=== PATIENT | male | born 1970 | race Caucasian/White ===

== ENCOUNTER 2020-02-03 13:27 | Outpatient (REF) | payer MEDICAID, SELFPAY | END 2020-02-03 13:28 | disposition home or self-care (01) | LOC: HO.LAB 13:27 | PROVIDERS: Visit Provider Internal Medicine | DX: Z20.828 Contact with and (suspected) exposure to other viral communicable diseases (principal) | CPT/HCPCS: C9803; U0003 ==

== ENCOUNTER 2020-06-08 10:00 | Outpatient (REF) | payer MEDICAID, SELFPAY | END 2020-06-08 10:01 | disposition home or self-care (01) | LOC: HO.LAB 10:00 | PROVIDERS: Visit Provider Internal Medicine | DX: Z20.822 Contact with and (suspected) exposure to COVID-19 (principal) | CPT/HCPCS: 36415; C9803; U0003; U0005 ==

== ENCOUNTER 2020-11-30 16:34 | Emergency (ER) | payer MEDICAID, SELFPAY ==
--- NOTE | ~2020-11-30 | CT_ITS ---
EXAMINATION: CT ANGIOGRAM OF THE CHEST WITH AND WITHOUT CONTRAST (CT PULMONARY ANGIOGRAM FOR PE) CT ABDOMEN AND PELVIS WITH CONTRAST CLINICAL INFORMATION: Left pleuritic chest pain. Rule out PE. Left upper quadrant abdominal pain. COMPARISON: Chest radiograph 12/15/2017 TECHNIQUE: Prior to contrast administration, noncontrast localization images were obtained. Subsequently, multidetector volumetric imaging was performed from the thoracic inlet to the pubic symphysis following the administration of 85 mL Omnipaque 350 intravenous contrast. This was followed by multidetector acquisition of the abdomen and pelvis. No contrast reaction reported Sagittal, coronal, and MIP oblique sagittal reformatted images were obtained on the CT workstation, uploaded to PACS, and reviewed. This CT examination was performed using dose optimization techniques as appropriate, variously including the following: *Automated exposure control *Adjustment of mA and/or kV according to patient size (this includes techniques or standardized protocols for targeted exams where dose is matched to indication/reason for exam; i.e. extremities or head) *Use of iterative reconstruction technique Total exam dose-length product 587 mGy-cm FINDINGS: QUALITY OF STUDY/CONTRAST BOLUS: Satisfactory. PULMONARY ARTERIES: No central or segmental pulmonary emboli. THORACIC AORTA: No aneurysm or dissection. LUNG: The central airways are patent. Mild paraseptal and centrilobular emphysema. Dependent atelectasis noted bilaterally. No dense consolidation. No pulmonary nodules. PLEURA: No pleural effusion or pneumothorax. MEDIASTINUM: Normal heart size. No pericardial effusion. No hilar or mediastinal lymphadenopathy. No evidence of septal bowing or right heart strain. CHEST WALL/AXILLA: No axillary or internal mammary lymphadenopathy. LIVER, GALLBLADDER, AND BILIARY TREE: The liver is normal in size, shape, and attenuation. No focal hepatic lesion or biliary ductal dilatation is present. The gallbladder is unremarkable with no evidence of radiopaque gallstones, gallbladder wall thickening, or obvious pericholecystic inflammatory changes. PANCREAS: Unremarkable. SPLEEN: Unremarkable. ADRENAL GLANDS: Unremarkable. KIDNEYS AND URETERS: The kidneys are normal in size, shape, and attenuation. No hydronephrosis, hydroureter, or calculi seen. No perinephric stranding. BLADDER: Unremarkable. GASTROINTESTINAL TRACT: The stomach is unremarkable. Normal caliber small bowel. There is no obstruction. Normal appendix. No colonic wall thickening or acute inflammatory change. No free air or free fluid. ABDOMINAL WALL: No significant hernia is appreciated. LYMPH NODES: Normal. VASCULAR: Unremarkable. PELVIC VISCERA: The prostate and seminal vesicles are unremarkable. OSSEOUS STRUCTURES: No acute or suspicious osseous abnormality. Mild degenerative changes of the spine. CT/CT angio chest PE protocol IMPRESSION: 1. No pulmonary embolism. 2. No acute abnormality in the chest, abdomen, or pelvis. 3. Mild emphysema. VTE: negative
[2020-11-30 17:05] VITALS: BP 104/67; PULSE 78; RESP 18; TEMP 36.8; O2SAT 98; BMI 22.3
[2020-11-30 18:26] VITALS: BP 112/67; PULSE 60; RESP 16; TEMP 36.6; O2SAT 97
[2020-11-30] MEDS: 0.9 % Sodium Chloride 1,000 ML 999 ML IV (18:34)
[2020-11-30 18:35] LABS: Basophils Percent Auto 0.4 % (0-2); Lymphocytes Percent Auto 25.7 % (20-40); MANUAL DIFF FLAG SCAN; Mean Corpuscular HGB Conc 35.4 g/dl (31.0-36.0); Mean Corpuscular Hemoglobin 31.1 pg (27.0-33.0); Monocytes Absolute Auto 0.8 X10*3/uL (0.1-1.2); PLT CLUMP 1; Red Cell Distribution Width 12.9 % (11.0-16.0); SCAN SMEAR FLAG 1
[2020-11-30] MEDS: ondansetron HCL 4 MG/2 ML VIAL IVPUSH (18:35)
[2020-11-30] MEDS: Ketorolac Tromethamine 15 MG/ML VIAL IVPUSH (18:35)
[2020-11-30 18:37] LABS: Eosinophils Absolute Auto 0.2 X10*3/uL (0.0-0.4); Hematocrit 43.5 % (42-52); Hemoglobin 15.4 g/dl (14.0-18.0); Imm Gran Abs Auto 0.02 X10*3/uL (0.00-0.03); Imm Gran Pct Auto 0.2 % (0.0-0.4); Lymphocytes Absolute Auto 2.1 X10*3/uL (1.2-4.9); Mean Corpuscular Volume 87.9 fL (80-98); Mean Platelet Volume 10.5 fL (9.4-12.4); Monocytes Percent Auto 9.4 % (2-11); Neutrophils Absolute Auto 5.1 X10*3/uL (2.0-8.3); Neutrophils Percent Auto 62.3 % (45-73); Platelet Count 141 X10*3/uL (160-400); Red Blood Count 4.95 X10*6/uL (4.60-5.80); White Blood Count 8.2 X10*3/uL (4.8-10.8)
[2020-11-30 18:58] LABS: SLIDE REVIEW VERIFIED
[2020-11-30 18:59] LABS: Alanine Aminotransferase 20 U/L (0-40); Albumin Level 3.9 g/dL (3.5-5.0); Alkaline Phosphatase 71 U/L (39-117); Aspartate Amino Transferase 28 U/L (5-37); Bilirubin Total 0.7 mg/dL (0.0-1.0); Blood Urea Nitrogen 9 mg/dL (9-16); Calcium 8.7 mg/dL (8.4-10.2); Creatinine Clr Calc Pharmacy 107.6; Estimated Glomerular Filt Rate > 60; Glucose Random 95 mg/dL (60-115); Lipase 43 U/L (8-78); Total Protein 6.4 g/dL (6.5-8.0)
[2020-11-30 19:08] LABS: Anion Gap 11 (12-20); Carbon Dioxide 25 mmol/L (22-29); Chloride 108 mmol/L (96-108); Potassium 3.5 mmol/L (3.3-5.1); Sodium 140 mmol/L (135-145)
[2020-11-30] MEDS: iohexoL 350 MG/ML 100 ML INFUS..BTL IV (20:39)
[2020-11-30 22:01] LABS: Glucose Urine UA NEG (NEG); Leukocyte Esterase Urine NEG (NEG); Nitrite Urine NEG (NEG); PH 6.5 (5.0-8.0); Specific Gravity - Urine <= 1.005 (1.005-1.025); Urine Blood NEG (NEG); Urine Ketones NEG (NEG); Urine Protein NEG (NEG-TRACE)
[2020-11-30 22:02] LABS: Appearance Urine CLEAR; Color Urine YELLOW
[2020-11-30] MEDS: predniSONE 20 MG TABLET 60 MG PO (23:31)
--- NOTE | 2020-12-01 02:00 | ED.ABDPAIN ---
HPI - Abdominal Pain General Chief Complaint: Abdominal Pain Stated Complaint: abd pain Time Seen by Provider: 11/30/20 17:42 Source: patient Mode of arrival: ambulatory Limitations: language barrier (Liberian speaking only, translator interpreter used) History of Present Illness HPI narrative: 50-year-old male who presents emergency department for evaluation of left-sided abdominal pain and left-sided chest pain. The patient states that the pain started while he was at work at around 3:00 p.m.. The pain came on suddenly. Describes the pain as sharp stabbing pain which is constant, worse with movement and worse with breathing. He felt short of breath and had dyspnea on exertion associated with the pain. He denied fever, chills, cough, nausea or vomiting. He states the pain is 9/10. This is 1st episode of this type of pain. Related Data Previous Rx's Medication Instructions Recorded prednisone 20 mg tablet 60 mg PO DAILY 5 Days #15 tab 11/30/20 Allergies Allergy/AdvReac Type Severity Reaction Status Date / Time No Known Allergies Allergy Verified 11/30/20 17:04 [No Known Allergies*] Review of Systems Review of Systems Yes all other systems are reviewed and are negative Physical Exam Vital Signs: Vital Signs: Last Vital Signs Temp 98 F 11/30/20 18:26 Pulse 60 11/30/20 18:26 Resp 16 11/30/20 18:26 BP 112/67 11/30/20 18:26 Pulse Ox 97 11/30/20 18:26 Body Mass Index 22.3 Const: General: cooperative and no acute distress Orientation/consciousness: oriented to person and oriented to place Limitations: no limitations HENMT: Head: Yes normal to inspection, Yes normocephalic and Yes atraumatic Ears: external ears normal General nose exam: Normal external nose present Face and sinus: Yes normal facial exam Mouth: Normal oral and palatal mucosa present Throat: Yes posterior oropharynx normal Eyes: General: appearance normal, both eyes and all related structures Pupils: Equal, round and reactive pupils present Neck: Neck: Yes normal visual inspection, Yes no lymphadenopathy, Yes trachea midline and Yes supple Chest: Chest palpation & inspection: normal inspection of the chest and tenderness (Moderate left lower chest wall tenderness) Resp: Effort & Inspection: normal respiratory effort and able to speak in complete sentences Auscultation: clear to auscultation bilaterally Cardio: Rate: regular rate Rhythm: regular rhythm Heart sounds: S1 normal heart sound present, S2 normal heart sound present and no murmurs GI: Inspection: Yes normal to inspection Palpation (GI): Soft to palpation, Tenderness to palpation present (GI) in the LUQ (Moderate) and no guarding Auscultation: normal bowel sounds : General: Yes no CVA tenderness Back/Spine/Pelvis: Back: no CVA tenderness Skin: General skin exam: no rashes or lesions noted Neuro: General: oriented to person and oriented to place Cranial nerves: Yes CN's II-XII intact bilaterally and Yes Equal, round and reactive pupils present Cognition (Neuro): normal cognition Motor exam (neuro): 5/5 motor strength present throughout Extrem: General: Yes normal to inspection Psych: Appearance: grossly normal Speech and movement: Normal speech and movement present Affect: normal affect Attitude: cooperative Thought process: Normal thought process present Thought content: Normal thought content present Course Course Course Narrative: 50-year-old male who presents emergency department for evaluation of left lower chest and left upper quadrant pain which began suddenly at 3:00 p.m., the pain is pleuritic and worse with movement, the pain was 9/10. Vital Signs were normal. The patient did have significant left lower chest wall and left upper quadrant abdominal tenderness. Laboratory evaluation was unremarkable. CT scan of the abdomen pelvis with IV contrast did not reveal any clear etiology for the pain. Patient's pain is most likely consistent with pleurisy versus musculoskeletal pain. The patient was treated with Toradol 30 mg IV, Zofran 4 mg IV and normal saline IV x1 L with resolution of his pain. The patient he was started on prednisone 60 mg once a day for 5 days . He was advised to take Tylenol for his pain as well. Patient was discharged home. The patient was given verbal and printed instructions prior to discharge. The patient was advised to follow-up with his PCP in 2 days and to return to the emergency department if his symptoms get worse or if he develops any new symptoms that are concerning to him. MDM - Abdominal Pain Lab Data Result diagrams: 11/30/20 18:23 11/30/20 18:23 Labs: Lab Results 11/30/20 11/30/20 11/30/20 Range/Units 18:23 18:23 21:52 WBC 8.2 (4.8-10.8) X10*3/uL RBC 4.95 (4.60-5.80) X10*6/uL Hgb 15.4 (14.0-18.0) g/dl Hct 43.5 (42-52) % MCV 87.9 (80-98) fL MCH 31.1 (27.0-33.0) pg MCHC 35.4 (31.0-36.0) g/dl RDW 12.9 (11.0-16.0) % Plt Count 141 L (160-400) X10*3/uL MPV 10.5 (9.4-12.4) fL Immature Gran % (Auto) 0.2 (0.0-0.4) % Neut % (Auto) 62.3 (45-73) % Lymph % (Auto) 25.7 (20-40) % [place] % (Auto) 9.4 (2-11) % Eos % (Auto) 2.0 (0-4) % Baso % (Auto) 0.4 (0-2) % Lymph # (Auto) 2.1 (1.2-4.9) X10*3/uL [place] # (Auto) 0.8 (0.1-1.2) X10*3/uL Eos # (Auto) 0.2 (0.0-0.4) X10*3/uL Baso # (Auto) 0.0 (0.0-0.2) X10*3/uL Abs Immat Gran (auto) 0.02 (0.00-0.03) X10*3/uL Absolute Neuts (auto) 5.1 (2.0-8.3) X10*3/uL Absolute Nucleated RBC 0.000 (0.0-0.012) X10*3/uL Nucleated RBC % (auto) 0.0 (0.0-0.2) /100WBC Smear Tech's Comments VERIFIED Sodium 140 (135-145) mmol/L Potassium 3.5 (3.3-5.1) mmol/L Chloride 108 (96-108) mmol/L Carbon Dioxide 25 (22-29) mmol/L Anion Gap 11 L (12-20) BUN 9 (9-16) mg/dL Creatinine 0.73 (0.5-1.4) mg/dL Estim Creat Clear Calc 107.6 Estimated GFR > 60 Random Glucose 95 (60-115) mg/dL Calcium 8.7 (8.4-10.2) mg/dL Total Bilirubin 0.7 (0.0-1.0) mg/dL AST 28 (5-37) U/L ALT 20 (0-40) U/L Alkaline Phosphatase 71 (39-117) U/L Total Protein 6.4 L (6.5-8.0) g/dL Albumin 3.9 (3.5-5.0) g/dL Lipase 43 (8-78) U/L Urine Color YELLOW Urine Appearance CLEAR Urine pH 6.5 (5.0-8.0) Ur Specific [place] <= 1.005 (1.005-1.025) Urine Protein NEG (NEG-TRACE) MG/DL Urine Glucose (UA) NEG (NEG) MG/DL Urine Ketones NEG (NEG) MG/DL Urine Blood NEG (NEG) Urine Nitrite NEG (NEG) Ur Leukocyte Esterase NEG (NEG) Discharge Plan Discharge Clinical Impression: Pleurisy Patient Disposition: Home, Self-Care Instructions: Pleurisy (ED) Additional Instructions: Your laboratory evaluation was normal. The CT scan of your chest abdomen and pelvis did not reveal any abnormalities which is reassuring. Your symptoms are consistent with pleurisy which is inflammation of the lining of your lungs. I am starting you on a strong anti-inflammatory steroid call prednisone. Take prednisone 20 mg pills, 3 pills once a day for 5 days. Stop taking Advil (ibuprofen) while you are taking prednisone. Take Tylenol (acetaminophen) 500 mg pills, 2 pills every 4 to 6 hours as needed for pain. Follow-up with your doctor in 2 days. Please return to the emergency department if your symptoms get worse or if you develop any symptoms that are concerning to you. Prescriptions: New prednisone 20 mg tablet 60 mg PO DAILY 5 Days Qty: 15 RF: 0 Stand Alone Forms: Work/School Release Interventions: ED Discharge Assessment Last Done: 11/30/20 23:41 Discharge Date/Time: 11/30/20 23:42 Print Language: Liberian [facility] Past Medical History [facility] Narrative: Past medical history: Arthritis of the hands. Past surgical history: None. Social history: He smokes 1/2 pack of cigarettes per day times 36 years. Denies alcohol use. He smokes marijuana daily. Medical History (Updated 12/01/20 @ 00:01 by Radha Ruano) No pertinent past medical history Social History Social History Advance Directives: No Advance Directives Information Provided: No
== END 2020-11-30 23:42 | disposition home or self-care (01) ==
PROVIDERS: Emergency Provider Emergency Medicine Emergency Medical Services
DX: R09.1 Pleurisy (principal); R10.9 Unspecified abdominal pain; Z79.899 Other long term (current) drug therapy
CPT/HCPCS: 36415; 71275; 74177; 80053; 81003; 83690; 85025; 96361; 96374; 96375; 99283; 99284; J1885; J2405; Q9967

== ENCOUNTER 2021-04-18 14:25 | Outpatient (REF) | payer MEDICAID, SELFPAY ==
[2021-04-18 14:56] LABS: COVID-19 Test Negative (Negative); IDNOW Serial# 16C4AD1C
== END 2021-04-18 14:26 | disposition home or self-care (01) ==
LOC: HO.LAB 14:25
PROVIDERS: Visit Provider Internal Medicine
DX: Z20.822 Contact with and (suspected) exposure to COVID-19 (principal)
CPT/HCPCS: 87635; C9803

== ENCOUNTER 2021-05-01 09:22 | Emergency (ER) | payer MEDICAID, SELFPAY ==
[2021-05-01 10:15] VITALS: BP 109/76; PULSE 70; RESP 18; TEMP 36.7; O2SAT 99; BMI 23.6
--- NOTE | 2021-05-01 11:06 | ED_ITS ---
HPI - General Adult General Chief complaint: General Medical Stated complaint: BODY ACHES Time Seen by Provider: 05/01/21 11:06 Source: patient Mode of arrival: ambulatory Limitations: no limitations History of Present Illness MD complaint: joint pain, heartburn Onset (ago): year(s) (3) Location: abdomen, left, right and upper extremity Radiation: non-radiation Severity: mild Quality: aching and other (burning) Pain Consistency: intermittent Relieving factors: eating and movement Exacerbating factors: none Associated symptoms: denies other symptoms Treatments prior to arrival: NSAID (takes advil daily) Related Data Previous Rx's Medication Instructions Recorded prednisone 20 mg tablet 60 mg PO DAILY 5 Days #15 tab 11/30/20 diclofenac sodium 1 % topical gel 2 g TOPICAL QID #100 g 05/01/21 (Voltaren Arthritis Pain) famotidine 20 mg tablet (Pepcid) 20 mg PO DAILY PRN #30 tab 05/01/21 gabapentin 100 mg capsule 100 mg PO BID 10 Days #20 cap 05/01/21 Allergies Allergy/AdvReac Type Severity Reaction Status Date / Time No Known Allergies Allergy Verified 05/01/21 10:15 [No Known Allergies*] Review of Systems Verdana 4l Review of Systems: Verdana 4d Verdana 4d Constitutional : No Fever, No Chills ENT/Mouth : No Ear Pain, No Hoarseness, No sore throat Eyes: No Eye Pain, No Swelling, No Redness, No Foreign Body Cardiovascular : No Chest Pain, No SOB Respiratory : No Cough, No Dyspnea GastrointestinalGastrointestinal : pos Nausea, No Vomiting, No Diarrhea, No abdominal Pain Genitourinary : No Dysuria, No Hematuria, pos heart burn Musculoskeletal : positive joint pain, No Myalgias, pos Joint Swelling Skin : No Skin lacerations, No rash Neuro : No Weakness, No Numbness, No Loss of Consciousness, No Dizziness, No Headache Psych : No Anxiety/Panic, No Depression Heme/Lymph: no easy bruising, no Lymphadenopathy Endocrine : No Polyuria, No Polydipsia All other systems reviewed and are negative [facility] Past Medical History Medical History Arthritis Depression No pertinent past medical history Social History Social History (Updated 05/01/21 @ 11:58 by Linda [place], DO) Patient Tobacco Use Status: Tobacco use Unknown Advance Directives: No Advance Directives Information Provided: No Physical Exam Verdana 4l Vital Signs: Verdana 4d Verdana 4d Vital Signs: Verdana 4d Verdana 4Bd Last Vital Signs Verdana 4d Packing Machine Can Feeder New 4d Packing Machine Can Feeder New 4d Temp 98.1 F 05/01/21 10:15 Packing Machine Can Feeder New 4d Pulse 70 05/01/21 10:15 Packing Machine Can Feeder New 4d Resp 18 05/01/21 10:15 BP 109/76 05/01/21 10:15 Pulse Ox 99 05/01/21 10:15 BMI result Body Mass Index 23.6 Appearance: Alert. Oriented X3. No acute distress. intermittently agitated Eyes: Pupils equal, round and reactive to light. ENT: Pharynx normal. Neck: Normal inspection. Neck supple. CVS: Normal heart rate and rhythm. Pulses normal. Respiratory: No respiratory distress. Breath sounds normal. Abdomen: Soft and non-tender. Skin: Skin warm and dry. Normal skin color. Normal skin turgor. Extremities: No lower extremity edema. states hands are swollen - no swelling or redness noted Neuro: Oriented X 3. No motor deficit. No sensory deficit. Course Course Course Narrative: patient feels much better Medical Decision Making MDM Narrative Medical decision making narrative: 50 yo male here in ED for 3 years of joint pain and acid reflux but has appointment with his doctor tomorrow he is very agitated and here for a pill - he refuses a COVID swab. He then states he wants to leave. With chip frier I was able to calm him down - I did discuss stopping advil and starting him on diclofenac gel, gabapentin and pepcid until his appointment tomorrow he agrees - his joints appear normal he has no other red flags he does not want workup in ED since he is seeing his doctor in the morning Discharge Plan Discharge Clinical Impression: Arthralgia Qualifiers: Joint pain location: unspecified Qualified Code(s): M25.50 - Pain in unspecified joint GERD (gastroesophageal reflux disease) Qualifiers: Esophagitis presence: without esophagitis Qualified Code(s): K21.9 - Gastro- esophageal reflux disease without esophagitis Patient Disposition: Home, Self-Care Instructions: Indigestion (ED), Arthralgia (ED) Additional Instructions: return to ED for any worsening symptoms or concerns no advil Prescriptions: New famotidine [Pepcid] 20 mg tablet 20 mg PO DAILY PRN (Reason: abdominal discomfort) Qty: 30 0RF diclofenac sodium [Voltaren Arthritis Pain] 1 % gel 2 g topical QID Qty: 100 0RF Rx Instructions: apply to single elbow, wrist or hand; for hand includes palm/fingers/back of hand gabapentin 100 mg capsule 100 mg PO BID 10 Days Qty: 20 0RF No Action prednisone 20 mg tablet 60 mg PO DAILY 5 Days Qty: 15 0RF Stand Alone Forms: Work/School Release Discharge Date/Time: 05/01/21 13:18 Print Language: Bahamian
== END 2021-05-01 13:18 | disposition home or self-care (01) ==
PROVIDERS: Emergency Provider Emergency Medicine
DX: M25.50 Pain in unspecified joint (principal); K21.9 Gastro-esophageal reflux disease without esophagitis
CPT/HCPCS: 99281; 99283

== ENCOUNTER 2022-03-19 15:41 | Emergency (ER) | payer MEDICAID, SELFPAY ==
--- NOTE | 2022-03-19 16:02 | ED.GENADULT ---
HPI - General Adult General Chief complaint: General Medical Stated complaint: bodyaches,headaches, abd pain, vomitting dizzy Source: patient Mode of arrival: ambulatory Limitations: no limitations Related Data Previous Rx's Medication Instructions Recorded prednisone 20 mg tablet 60 mg PO DAILY 5 days #15 tabs 11/30/20 diclofenac sodium 1 % topical gel 2 g topical QID #100 grams 05/01/21 (Voltaren Arthritis Pain) famotidine 20 mg tablet (Pepcid) 20 mg PO DAILY PRN abdominal 05/01/21 discomfort #30 tabs gabapentin 100 mg capsule 100 mg PO BID 10 days #20 caps 05/01/21 Allergies Allergy/AdvReac Type Severity Reaction Status Date / Time No Known Allergies Allergy Verified 05/01/21 10:15 [No Known Allergies*] [facility] Past Medical History Attestation statement: The following information was validated with the patient. Source: old records reviewed Medical History Arthritis Depression No pertinent past medical history Social History Social History Patient Tobacco Use Status: Tobacco use Unknown Advance Directives: No Advance Directives Information Provided: No Physical Exam ED Vital Signs: Vital Signs - 24 hr 03/19/22 16:11 Temperature 97.6 F Pulse Rate 88 Respiratory Rate 18 Blood Pressure 118/84 Pulse Oximetry 98 Oxygen Delivery Method Room Air BMI result Body Mass Index 22.3 Course Course Course Narrative: RME: Patient is a 51-year-old male who presents to emergency department with complaints of abdominal pain, headache, nausea, vomiting, dizziness, whole body arthritis x 1 year. 4 days ago he awoke with tactile fever, and diffuse body burning which is new for him. Denies any known sick contacts. Has not been vaccinated for COVID-19 or influenza. Denies chest pain, shortness of breath, presyncope or syncope, neck pain, neck stiffness. Plan: Labs, COVID-19/influenza testing. Medical Decision Making Lab Data [facility] Lab Attestation statement: I reviewed the patient's lab results. Result Diagrams: 03/19/22 16:36 03/19/22 16:36 Labs: Lab Results 03/19/22 03/19/22 03/19/22 Range/Units 16:36 16:36 16:37 WBC 4.5 L (4.8-10.8) X10*3/uL RBC 5.64 (4.60-5.80) X10*6/uL Hgb 17.0 (14.0-18.0) g/dl Hct 49.5 (42.0-52.0) % MCV 87.8 (80.0-98.0) fL MCH 30.1 (27.0-33.0) pg MCHC 34.3 (31.0-36.0) g/dl RDW 12.7 (11.0-16.0) % Plt Count 122 L (160-400) X10*3/uL MPV 9.9 (9.4-12.4) fL Immature Gran % (Auto) 0.2 (0.0-0.4) % Neut % (Auto) 48.6 (45-73) % Lymph % (Auto) 34.4 (20-40) % [place] % (Auto) 16.0 H (2-11) % Eos % (Auto) 0.4 (0-4) % Baso % (Auto) 0.4 (0-2) % Lymph # (Auto) 1.5 (1.2-4.9) X10*3/uL [place] # (Auto) 0.7 (0.1-1.2) X10*3/uL Eos # (Auto) 0.0 (0.0-0.4) X10*3/uL Baso # (Auto) 0.0 (0.0-0.2) X10*3/uL Abs Immat Gran (auto) 0.01 (0.00-0.03) X10*3/uL Absolute Neuts (auto) 2.2 (2.0-8.3) x10*3/uL Absolute Nucleated RBC 0.000 (0.0-0.012) X10*3/uL Nucleated RBC % (auto) 0.0 (0.0-0.2) /100WBC Sodium 138 (135-145) mmol/L Potassium 3.7 (3.3-5.1) mmol/L Chloride 104 (96-108) mmol/L Carbon Dioxide 26 (22-29) mmol/L Anion Gap 12 (12-20) BUN 10 (9-16) mg/dL Creatinine 0.76 (0.5-1.4) mg/dL Estim Creat Clear Calc 98.0 Estimated GFR > 60 Random Glucose 91 (60-115) mg/dL Calcium 8.7 (8.4-10.2) mg/dL Magnesium 1.8 (1.6-2.6) mg/dL Total Bilirubin 0.5 (0.0-1.0) mg/dL AST 23 (5-37) U/L ALT 24 (0-40) U/L Alkaline Phosphatase 87 (39-117) U/L Troponin I High Sens < 3.5 (<3.5-35.0) ng/L Total Protein 7.2 (6.5-8.0) g/dL Albumin 4.2 (3.5-5.0) g/dL Lipase 25 (8-78) U/L COVID-19 ([facility]) (Negative) COVID-19 Clin Com Influenza Type A ([facility]ILE) (Negative) Influenza Type B (EMILE) (Negative) Influenza A & B Note 03/19/22 03/19/22 Range/Units 16:43 16:44 WBC (4.8-10.8) X10*3/uL RBC (4.60-5.80) X10*6/uL Hgb (14.0-18.0) g/dl Hct (42.0-52.0) % MCV (80.0-98.0) fL MCH (27.0-33.0) pg MCHC (31.0-36.0) g/dl RDW (11.0-16.0) % Plt Count (160-400) X10*3/uL MPV (9.4-12.4) fL Immature Gran % (Auto) (0.0-0.4) % Neut % (Auto) (45-73) % Lymph % (Auto) (20-40) % [place] % (Auto) (2-11) % Eos % (Auto) (0-4) % Baso % (Auto) (0-2) % Lymph # (Auto) (1.2-4.9) X10*3/uL [place] # (Auto) (0.1-1.2) X10*3/uL Eos # (Auto) (0.0-0.4) X10*3/uL Baso # (Auto) (0.0-0.2) X10*3/uL Abs Immat Gran (auto) (0.00-0.03) X10*3/uL Absolute Neuts (auto) (2.0-8.3) x10*3/uL Absolute Nucleated RBC (0.0-0.012) X10*3/uL Nucleated RBC % (auto) (0.0-0.2) /100WBC Sodium (135-145) mmol/L Potassium (3.3-5.1) mmol/L Chloride (96-108) mmol/L Carbon Dioxide (22-29) mmol/L Anion Gap (12-20) BUN (9-16) mg/dL Creatinine (0.5-1.4) mg/dL Estim Creat Clear Calc Estimated GFR Random Glucose (60-115) mg/dL Calcium (8.4-10.2) mg/dL Magnesium (1.6-2.6) mg/dL Total Bilirubin (0.0-1.0) mg/dL AST (5-37) U/L ALT (0-40) U/L Alkaline Phosphatase (39-117) U/L Troponin I High Sens (<3.5-35.0) ng/L Total Protein (6.5-8.0) g/dL Albumin (3.5-5.0) g/dL Lipase (8-78) U/L COVID-19 ([facility]ANSEL) Positive A (Negative) COVID-19 Clin Com See Note Influenza Type A (EMILE) Negative (Negative) Influenza Type B ([facility]ILE) Negative (Negative) Influenza A & B Note See Note Discharge Plan Discharge Clinical Impression: COVID-19 Patient Disposition: Elopement Prescriptions: No Action prednisone 20 mg tablet 60 mg PO DAILY 5 Days Qty: 15 0RF famotidine [Pepcid] 20 mg tablet 20 mg PO DAILY PRN (Reason: abdominal discomfort) Qty: 30 0RF diclofenac sodium [Voltaren Arthritis Pain] 1 % gel 2 g topical QID Qty: 100 0RF Rx Instructions: apply to single elbow, wrist or hand; for hand includes palm/fingers/back of hand gabapentin 100 mg capsule 100 mg PO BID 10 Days Qty: 20 0RF
[2022-03-19 16:11] VITALS: BP 118/84; PULSE 88; RESP 18; TEMP 36.4; O2SAT 98; BMI 22.3
--- NOTE | 2022-03-19 16:17 | ECG_ITS ---
Test Reason : PAIN Blood Pressure : / mmHG Vent. Rate : 065 BPM Atrial Rate : 065 BPM P-R Int : 142 ms QRS Dur : 086 ms QT Int : 378 ms P-R-T Axes : 062 053 059 degrees QTc Int : 393 ms Normal sinus rhythm Possible Left atrial enlargement Borderline ECG When compared with ECG of 01-FEB-2019 20:38, No significant change was found Referred By: Lucy Kern Electronically Signed By:Kel Richards
[2022-03-19 16:50] LABS: MANUAL DIFF FLAG NO
[2022-03-19 16:59] LABS: Basophils Percent Auto 0.4 % (0-2); Eosinophils Percent Auto 0.4 % (0-4); Hematocrit 49.5 % (42.0-52.0); Imm Gran Abs Auto 0.01 X10*3/uL (0.00-0.03); Imm Gran Pct Auto 0.2 % (0.0-0.4); Lymphocytes Absolute Auto 1.5 X10*3/uL (1.2-4.9); Lymphocytes Percent Auto 34.4 % (20-40); Mean Corpuscular HGB Conc 34.3 g/dl (31.0-36.0); Mean Corpuscular Hemoglobin 30.1 pg (27.0-33.0); Mean Corpuscular Volume 87.8 fL (80.0-98.0); Mean Platelet Volume 9.9 fL (9.4-12.4); Monocytes Absolute Auto 0.7 X10*3/uL (0.1-1.2); Neutrophils Absolute Auto 2.2 x10*3/uL (2.0-8.3); Neutrophils Percent Auto 48.6 % (45-73); Platelet Count 122 X10*3/uL (160-400); Red Blood Count 5.64 X10*6/uL (4.60-5.80); Red Cell Distribution Width 12.7 % (11.0-16.0); White Blood Count 4.5 X10*3/uL (4.8-10.8)
[2022-03-19 17:01] LABS: COVID-19 Test Positive (Negative); IDNOW Serial# 16C4AD1C
[2022-03-19 17:10] LABS: IDNOW Serial# BCCEAD1C; Influenza A Negative (Negative); Influenza B2 Negative (Negative)
[2022-03-19 17:13] LABS: Alanine Aminotransferase 24 U/L (0-40); Albumin Level 4.2 g/dL (3.5-5.0); Alkaline Phosphatase 87 U/L (39-117); Anion Gap 12 (12-20); Aspartate Amino Transferase 23 U/L (5-37); Bilirubin Total 0.5 mg/dL (0.0-1.0); Blood Urea Nitrogen 10 mg/dL (9-16); Calcium 8.7 mg/dL (8.4-10.2); Carbon Dioxide 26 mmol/L (22-29); Chloride 104 mmol/L (96-108); Estimated Glomerular Filt Rate > 60; Glucose Random 91 mg/dL (60-115); Lipase 25 U/L (8-78); Magnesium 1.8 mg/dL (1.6-2.6); Potassium 3.7 mmol/L (3.3-5.1); Sodium 138 mmol/L (135-145); Total Protein 7.2 g/dL (6.5-8.0)
[2022-03-19 17:29] LABS: Troponin-I High Sensitivity < 3.5 ng/L (<3.5-35.0)
--- NOTE | 2022-03-19 19:35 | PC.NURSE ---
Patient called in to speak with provider and he has left the ED.
== END 2022-03-19 20:10 | disposition left against medical advice (07) ==
PROVIDERS: Nurse Practitioner Family; Emergency Provider Emergency Medicine
DX: U07.1 COVID-19 (principal); R51.9 Headache, unspecified
CPT/HCPCS: 36415; 80053; 83690; 83735; 84484; 85025; 87502; 87635; 93005; 99283

== ENCOUNTER 2025-02-15 10:12 | Outpatient (REF) | payer MEDICAID, SELFPAY ==
[2025-02-15 11:27] LABS: MANUAL DIFF FLAG NO
[2025-02-15 12:02] LABS: Hemoglobin 16.9 g/dl (14.0-18.0); Imm Gran Abs Auto 0.02 X10*3/uL (0.00-0.03); Imm Gran Pct Auto 0.4 % (0.0-0.4); NRBC Abs Auto 0.000 X10*3/uL (0.0-0.012); NRBC Pct Auto 0.0 /100WBC (0.0-0.2); PLT CLUMP 1; SCAN SMEAR FLAG 1
[2025-02-15 12:04] LABS: Hematocrit 48.7 % (42.0-52.0); Lymphocytes Absolute Auto 1.3 X10*3/uL (1.2-4.9); Mean Corpuscular HGB Conc 34.7 g/dl (31.0-36.0); Mean Corpuscular Hemoglobin 30.5 pg (27.0-33.0); Mean Corpuscular Volume 87.7 fL (80.0-98.0); Red Blood Count 5.55 X10*6/uL (4.60-5.80)
[2025-02-15 12:27] LABS: Alanine Aminotransferase 26 U/L (0-40); Albumin Level 4.2 g/dL (3.5-5.0); Alkaline Phosphatase 87 U/L (39-117); Anion Gap 11 (12-20); Aspartate Amino Transferase 34 U/L (5-37); Blood Urea Nitrogen 16 mg/dL (9-16); Calcium 8.6 mg/dL (8.4-10.2); Carbon Dioxide 21 mmol/L (22-29); Chloride 109 mmol/L (96-108); Cholesterol 115 mg/dL (<200); Estimated Glomerular Filt Rate > 60; HDL Cholesterol 28 mg/dL (>40); Potassium 3.8 mmol/L (3.3-5.1); Sodium 137 mmol/L (135-145); Total Protein 7.3 g/dL (6.5-8.0); Triglycerides 80 mg/dL (<150); Uric Acid 2.4 mg/dL (3.4-7.0)
[2025-02-15 12:30] LABS: HBS Num1 1.29 mIU/mL (0-7.99); HBc Num1 0.18 S/CO (0.00-0.79); HBsAGNum1 0.52 S/CO (0.00-0.99); HIV Num 1 0.06 S/CO (0.00-0.99); Hepatitis A Antibody IgM 0.22 Index (0-0.79); Hepatitis B Surface Antigen Negative (Negative); ~HepC Num1 0.17 S/CO (0.00-0.79); ~Hepatitis A Antibody IgM Nonreactive (Nonreactive); ~Hepatitis B Surface Antibody NONREACTIVE (Nonreactive); ~Hepatitis C Antibody Nonreactive (Nonreactive)
[2025-02-15 12:31] LABS: Platelet Count 119 X10*3/uL (160-400); White Blood Count 5.6 X10*3/uL (4.8-10.8)
[2025-02-15 13:54] LABS: Reflex LDLD? No
[2025-02-17 11:23] LABS: Anti Nuclear Antibody Screen NEGATIVE (NEGATIVE)
[2025-02-18 08:23] LABS: TS Negative Control Passed; TS Panel A 5; TS Panel B 1; TS Positive Control Passed; TSpotTB Borderline (Negative)
== END 2025-02-15 10:13 | disposition home or self-care (01) ==
LOC: HO.HHCL 10:12
PROVIDERS: PCP Internal Medicine; Visit Provider Internal Medicine
DX: Z01.84 Encounter for antibody response examination (principal); Z11.3 Encounter for screening for infections with a predominantly sexual mode of transmission; Z11.4 Encounter for screening for human immunodeficiency virus [HIV]; Z11.59 Encounter for screening for other viral diseases; Z11.1 Encounter for screening for respiratory tuberculosis; R03.0 Elevated blood-pressure reading, without diagnosis of hypertension; M25.50 Pain in unspecified joint
CPT/HCPCS: 36415; 80053; 80061; 84443; 84550; 85025; 85652; 86038; 86140; 86431; 86481; 86704; 86706; 86709; 86803; 87340; 87389

== ENCOUNTER 2025-02-17 08:46 | Emergency (ER) | payer MEDICAID, SELFPAY ==
--- OUTSIDE RECORDS SUMMARY | 2025-02-14 14:20 | XMS_ITS | Encounter Summary ---
Author Organization [employer] Address [address] [facility] [address] [address] [place] [address] Care Team Providers Care Senior Manufacturing Test Engineer Name Role Phone Mena Worthy ARCHANA Primary Care Provider [phone] Encounter Details Date Type Department Care Team (Late st Contact Info) Description 02/14/2025 2:20 PM EST Office Visit [facility] [address] [place] [address] Dulce Maria Arias MD [address] [place] [address] Arthralgia, unspecified joint (Primary Dx); Elevated blood pressure reading; Body aches Social History Tobacco Use Types Packs/Day Years Used Date Smoking Tobacco: Every Day Cigarettes Smokeless Tobacco: Never Tobacco Cessation:Ready to Q uit: Not Asked; Counseling Given: Not Answered Alcohol Use Standard Drinks/Week Comments Never 0 (1 standard drink = 0.6 oz pur e alcohol) Depression Answer Date Recorded Patient Health Questionnaire-9 Score 6 03/20/2022 Depression Answer Date Recorded Patient Health Questionnaire-2 Score 3 03/20/2022 Sex and Gender Information Value Date Recorded Sex Assigned at Male 01/28/2022 10:18 AM EDT Legal Sex Male 10:18 AM EDT Gender Identity Choose not to disclose 10:18 AM EDT Sexual Orientation Choose not to disclose 2021 10:18 AM EDT documented as of this encounter Last Filed Vital Signs Vital Sign Reading Time Taken Comments Blood Pressure 122/90 02/14/2025 2:22 PM EST Pulse 95 02/14/2025 2:22 PM EST Temperature 36.5 C (97.7 F) 02/14/2025 2:22 PM EST Respiratory Rate 16 02/14/2025 2:22 PM EST Oxygen Saturation 97% 02/14/2025 2:22 PM EST Inhaled Oxygen Concentration - - Weight 66.8 kg (147 lb 3.2 oz) 02/14/2025 2:22 P M EST Height 167.6 cm (5' 6 ) 02/14/2025 2:22 PM EST Body Mass Index 23.76 02/14/2025 2:22 PM EST documented in this encounter Progress Notes * Dulce Maria Arias MD - 02/14/2025 2:20 PM EST SUBJECTIVE: Seven Morrow is a 54 y.o. year old adult who presents for Walk In Center/body aches. Denies recent illness, injury, or hospitalization. Acute Concerns: Polyarticular Joint Pain and Swelling Co generalized body aches and arthralgias for many years, Reports pain as persistent and severe, with episodes of stiffness and difficulty moving. Pain is aggravated by activity and worsens at work. Uses topical creams for relief. No mention of prior joint trauma. Reports intermittent sensations of internal heat as if having a fever, followed by chills. These episodes are associated with joint pain and occur unpredictably. Headaches Describes sudden, stabbing headaches, sometimes accompanied by visual disturbances. Headaches occursporadically and are severe. Occasional vision problems, especially when straining to read or watchtelevision. Visual discomfort is associated with headaches. Hypertension History of high blood pressure, with episodes of feeling hot inside and headaches. Not taking BP meds. Hasn't seen PCP in 2+ y Substance Use Admits to occasional cigarette + THC smoking and Crack cocaine use in the past more than 10y ago. Denies current alcohol use. Social History Social History Narrative Not on file Problem List[1] Family History[2] Review of Systems Constitutional: Positive for fatigue. Negative for chills and fever. HENT: Negative for congestion, ear pain, nosebleeds, rhinorrhea, sinus pressure, sore throat and trouble swallowing. Eyes: Positive for visual disturbance. Negative for pain and discharge. Respiratory: Negative for cough, chest tightness and shortness of breath. Cardiovascular: Negative for chest pain, palpitations and leg swelling. Gastrointestinal: Negative for abdominal pain, blood in stool, constipation, diarrhea and nausea. Endocrine: Negative for polydipsia and polyuria. Genitourinary: Negative for dysuria, frequency, genital sores, pelvic pain and vaginal discharge. Musculoskeletal: Positive for arthralgias and myalgias. Negative for back pain and neck pain. Skin: Negative for rash. Allergic/Immunologic: Negative for environmental allergies. Neurological: Positive for headaches. Negative for dizziness, seizures, weakness and light-headedness. Hematological: Negative for adenopathy. Psychiatric/Behavioral: Negative for agitation, behavioral problems, self-injury and suicidal ideas. OBJECTIVE: Vitals: 02/14/25 1422 BP: (!) 122/90 Pulse: 95 Resp: 16 Temp: 97.7 ??F (36.5 ??C) SpO2: 97% Physical Exam HENT: Right Ear: Tympanic membrane and ear canal normal. Left Ear: Tympanic membrane and ear canal normal. Mouth/Throat: Mouth: Mucous membranes are moist. Pharynx: No oropharyngeal exudate or posterior oropharyngeal erythema. Eyes: Pupils: Pupils are equal, round, and reactive to light. Cardiovascular: Rate and Rhythm: Regular rhythm. Pulses: Normal pulses. Heart sounds: Normal heart sounds. No murmur heard. Pulmonary: Breath sounds: Normal breath sounds. Abdominal: General: Bowel sounds are normal. Palpations: Abdomen is soft. Tenderness: There is no abdominal tenderness. Musculoskeletal: General: Normal range of motion. Right wrist: Tenderness present. Left wrist: Tenderness present. Right hand: Bony tenderness present. Left hand: Bony tenderness present. Cervical back: Neck supple. Tenderness present. Thoracic back: Spasms present. Lumbar back: Tenderness present. Right foot: Tenderness present. Left foot: Tenderness present. Skin: General: Skin is warm. Neurological: General: No focal deficit present. Mental Status: Seven is alert and oriented to person, place, and time. Psychiatric: Mood and Affect: Mood normal. Behavior: Behavior normal. Problem List Items Addressed This Visit Arthralgia - Primary Most likely osteoarthritis, rule out inflammatory arthritis Can take Tylenol as needed, will call back as needed abnormal lab results. Relevant Orders DULCE MARIA Screen,IFA, with Reflex to Titer and Pattern Sed Rate by Modified Westergren C-reactive Protein Rheumatoid Factor Uric acid CBC auto differential Hepatitis Panel, General TSH with Reflex to Free T4 T-SPOT??.TB HIV-1/2 Antigen and Antibodies, Fourth Generation, with Reflexes Comprehensive Metabolic Panel Elevated blood pressure reading - No history of hypertension, current smoker - Advised to quit smoking, avoid any recreational substances or alcohol - Monitor blood pressure at home daily, record readings, and bring results to follow-up appointmentin 2-3 weeks with PCP. Relevant Orders CBC auto differential Lipid Panel with Reflex to Direct LDL Body aches Relevant Orders POCT Rapid Covid-19 BinaxNOW (Completed) POCT Rapid Influenza A NAVARRETE ID NOW (Completed) POCT Rapid Influenza B NAVARRETE ID NOW (Completed) CBC auto differential HIV-1/2 Antigen and Antibodies, Fourth Generation, with Reflexes Comprehensive Metabolic Panel This note was drafted using Ambient (AI) technology. The patient/patient's guardian has been informed and has consented to the use of this technology: Yes No follow-ups on file. Medications Ordered Prior to Encounter[3] [1] Patient Active Problem List Diagnosis Polyarthralgia Mixed anxiety and depressive disorder Posttraumatic stress disorder Healthcare maintenance Elevated blood pressure reading Body aches Arthralgia [2] Family History Problem Relation Name Age of Onset Arthritis Father [3] Current Outpatient Medications on File Prior to Visit Medication Sig Dispense Refill acetaminophen (Tylenol) 500 MG tablet Take 1 tablet by mouth every 6 (six) hours if needed. Diclofenac Sodium 1 % gel Apply 2 g topically every 6 (six) hours if needed. No current facility-administered medications on file prior to visit. documented in this encounter Miscellaneous Notes * Assessment & Plan Note - Dulce Maria Arias MD - 02/14/2025 4:07 PM EST Associated Problem(s): Elevated blood pressure reading - No history of hypertension, current smoker - Advised to quit smoking, avoid any recreational substances or alcohol - Monitor blood pressure at home daily, record readings, and bring results to follow-up appointmentin 2-3 weeks with PCP. * Assessment & Plan Note - Dulce Maria Arias MD - 02/14/2025 4:06 PM EST Associated Problem(s): Arthralgia Most likely osteoarthritis, rule out inflammatory arthritis Can take Tylenol as needed, will call back as needed abnormal lab results. documented in this encounter Plan of Treatment Upcoming Encounters Date Type Department Care Team (Late st Contact Info) Description 03/23/2025 9:45 AM EST Office Visit [facility] [address] [place] [address] Mena Worthy FNP [address] [place] [address] Pending Results Name Type Priority Associated Diagnoses Date /Time DULCE MARIA Screen,IFA, with Reflex to Titer and Pattern Lab Routine Arthralgia, unspecified joint 02/15/2025 10:23 AM EST Scheduled Orders Name Type Priority Associated Diagnoses Orde r Schedule T-SPOT .TB Lab Routine Arthralgia, unspecified joint Expected: 02/14/2025 (Approximate), Expires: 02/14/2026 documented as of this encounter Procedures Procedure Name Priority Date/Time Associated Diagnosis Comments TSH W/REFLEX TO FT4 Routine 02/15/2025 1 0:23 AM EST Arthralgia, unspecified joint LIPID PANEL WITH REFLEX TO DIRECT LDL Routine 02/15/2025 10:23 AM EST Elevated blood pressure reading HEPATITIS PANEL, GENERAL Routine 02/15/2025 10:23 AM EST Arthralgia, unspecified joint CBC WITH AUTO DIFFERENTIAL Routine 02/15/2025 10:23 AM EST Arthralgia, unspecified joint Elevated blood pressure reading Body aches HIV 1/2 ANTIGEN/ANTIBODY, FOURTH GENERATION W/RFL Routine 02/15/2025 10:23 AM EST Arthralgia, unspecified joint Body aches SED RATE BY MODIFIED WESTERGREN Routine 02/15/2025 10:23 AM EST Arthralgia, unspecified joint RHEUMATOID FACTOR Routine 02/15/2025 10: 23 AM EST Arthralgia, unspecified joint C-REACTIVE PROTEIN Routine 02/15/2025 10 :23 AM EST Arthralgia, unspecified joint DULCE MARIA SCREEN, IFA, W/REFL TITER AND PATTERN Routine 02/15/2025 10:23 AM EST Arthralgia, unspecified joint URIC ACID Routine 02/15/2025 10:23 AM EST Arthralgia, unspecified joint COMPREHENSIVE METABOLIC PANEL Routine 02/15/2025 10:23 AM EST Arthralgia, unspecified joint Body aches POCT INFLUENZA A (ID NOW RAPID MOLECULAR) Routine 02/14/2025 2:38 PM EST Body aches POCT INFLUENZA B (ID NOW RAPID MOLECULAR) Routine 02/14/2025 2:37 PM EST Body aches POCT RAPID COVID ANTIGEN Routine 02/14/2025 2:34 PM EST Body aches documented in this encounter Results * (ABNORMAL) Lipid Panel with Reflex to Direct LDL (02/15/2025 10:23 AM EST) Triglycerides 80 <150 mg/dL [facility] Comment:Desirable Triglyceri de: less than 150 mg/dLBorderline High Triglyceride 150-199 mg/dLHigh Triglyceride: 200-499 mg/dLVery High Triglyceride: greater than or equal to 5OO mg/dL Cholesterol 115 <200 mg/dL [facility] Comment:Desirable Cholestero l: less than 200 mg/dLBorderline High Cholesterol: 200-239 mg/dLHigh Cholesterol: greater than 239 mg/dL LDL Cholesterol Calculated 71 <100 mg/dL [facility] Comment:Desirable LDL: less than 100 mg/dLNear Optimal/Above Optimal LDL: 110- 129 mg/dLBorderline High LDL: 130-159 mg/dLHigh LDL: 160-189 mg/dLVery High LDL: greater than or equal to 190 mg/dL HDL Cholesterol 28(L) >40 mg/dL [facility] Comment:Desirable HDL: great er than 40 mg/dL Note: This HDL assay may give artificially low results in patients with liver disease. Blood 02/15/2025 10:2 3 AM EST 02/15/2025 11:34 AM EST us Dulce Maria Arias MD LAB BLOOD ORDERABLES Fin al Result [facility] [address] [place] [phone] * (ABNORMAL) Comprehensive Metabolic Panel (02/15/2025 10:23 AM EST) Sodium 137 135 - 145 mmol/L [facility] Potassium 3.8 3.3 - 5.1 mmol/L [facility] Chloride 109(H) 96 - 108 mmol/L [facility] Carbon Dioxide 21(L) 22 - 29 mmol/L [facility] Anion Gap 11(L) 12 - 20 [facility] Urea Nitrogen (BUN) 16 9 - 16 mg/dL [facility] Creatinine, Serum 0.72 0.5 - 1.4 mg/dL [facility] Estimated Glomerular Filt Rate >60 [facility] Comment:Chronic Kidney Disea se: Estimated GFR < 60 mL/min/[id number] Kidney Disease: Estimated GFR < 15 mL/min/1.73m2 Glucose 105 60 - 115 mg/dL [facility] Calcium 8.6 8.4 - 10.2 mg/dL [facility] Bilirubin, Total 0.5 0.0 - 1.0 mg/dL [facility] Aspartate Amino Transferase 34 5 - 37 U/L [facility] Alanine Aminotransferase 26 0 - 40 U/L [facility] Total Protein 7.3 6.5 - 8.0 g/dL [facility] Albumin Level 4.2 3.5 - 5.0 g/dL [facility] Alkaline Phosphatase 87 39 - 117 U/L [facility] Blood Venous blood specimen / Unknown 02/15/2025 10:23 AM EST 02/15/2025 11:34 AM EST Dulce Maria Arias MD LAB BLOOD ORDERABLES Fin al Result Performing Organization Address City/[facility] Co de Phone Number [facility] [address] [place] [phone] * HIV-1/2 Antigen and Antibodies, Fourth Generation, with Reflexes (02/15/2025 10:23 AM EST) HIV AB/AG Nonreactive Nonreactive [facility] Comment:HIV-1 p24 Ag and/or HIV-1/HIV-2 Ab not detected.A test result that is nonreactive does not exclude thepossibility of exposure to or infection with HIV-1 and/orHIV-2. Nonreactive results in this assay for individualswith prior exposure to HIV-1 and/or HIV-2 may be due toantigen and antibody levels that are below the limit ofdetection of this assay.The [facility] HIV Ag/Ab Combo assay result andsupplemental assay results should be interpreted inconjunction with the patient's clinical presentation,history and other laboratory results. If the results areinconsistent with clinical evidence, additional testing issuggested to confirm the result. Blood Venous blood specimen / Unknown 02/15/2025 10:23 AM EST 02/15/2025 11:30 AM EST us Dulce Maria Arias MD LAB BLOOD ORDERABLES Fin al Result Performing Organization Address [facility] Co de Phone Number [facility] [address] [place] [phone] * TSH with Reflex to Free T4 (02/15/2025 10:23 AM EST) TSH reflex Free T4 1.37 0.32 - 4.0 uIU/mL [facility] Blood 02/15/2025 10:2 3 AM EST 02/15/2025 11:34 AM EST Dulce Maria Arias MD LAB BLOOD ORDERABLES Fin al Result Performing Organization Address [facility] Co de Phone Number [facility] [address] [place] [phone] * Hepatitis Panel, General (02/15/2025 10:23 AM EST) Pathologist [facility] Hepatitis A IgM Nonreactive Nonreactive [facility] Comment:IgM antibodies to VEGAS V not detected; does not exclude earlyacute or recovered HAV infection. ~Hepatitis B Surface Antibody NONREACTIVE Nonreactive [facility] Comment:Nonreactive: < 8.00 mIU/mL Hepatitis B Core Antibody Nonreactive Nonreactive [facility] Hepatitis C Antibody Nonreactive Nonreactive [facility] Comment:Antibodies to HCV no t detected; does not exclude early acuteHCV infection. Hepatitis B Surface Ag Negative Negative [facility] Blood 02/15/2025 10:2 3 AM EST 02/15/2025 11:30 AM EST Dulce Maria Arias MD LAB BLOOD ORDERABLES Fin al Result Performing Organization Address [facility] Co de Phone Number [facility] [address] [place] [phone] * (ABNORMAL) CBC auto differential (02/15/2025 10:23 AM EST) [facility] White Blood Count 5.6 4.8 - 10.8 X10*3/uL [facility] Red Blood Count 5.55 4.60 - 5.80 X10*6/uL [facility] Hemoglobin 16.9 14.0 - 18.0 g/dl [facility] Hematocrit 48.7 42.0 - 52.0 % [facility] Mean Corpuscular Volume 87.7 80.0 - 98.0 fL [facility] Mean Corpuscular Hemoglobin 30.5 27.0 - 33.0 pg [facility] Mean Corpuscular HGB Conc 34.7 31.0 - 36.0 g/dl [facility] Red Cell Distribution Width 12.7 11.0 - 16.0 % [facility] Platelet Count 119(L) 160 - 400 X10*3/uL [facility] Mean Platelet Volume 10.6 9.4 - 12.4 fL [facility] Neutrophils Percent Auto 61.5 45 - 73 % [facility] Imm Gran Pct Auto 0.4 0.0 - 0.4 % [facility] Lymphocytes Percent Auto 22.9 20 - 40 % [facility] Monocytes Percent Auto 14.5(H) 2 - 11 % [facility] Eosinophils Percent Auto 0.2 0 - 4 % [facility] Basophils Percent Auto 0.5 0 - 2 % [facility] NRBC Pct Auto 0.0 0.0 - 0.2 /100WBC [facility] Neutrophils Absolute Auto 3.5 2.0 - 8.3 x10*3/uL [facility] Imm Gran Abs Auto 0.02 0.00 - 0.03 X10*3/uL [facility] Lymphocytes Absolute Auto 1.3 1.2 - 4.9 X10*3/uL [facility] Monocytes Absolute Auto 0.8 0.1 - 1.2 X10*3/uL [facility] Eosinophils Absolute Auto 0.0 0.0 - 0.4 X10*3/uL [facility] Basophils Absolute Auto 0.0 0.0 - 0.2 X10*3/uL [facility] NRBC Abs Auto 0.000 0.0 - 0.012 X10*3/uL [facility] Blood Venous blood specimen / Unknown 02/15/2025 10:23 AM EST 02/15/2025 11:24 AM EST us Dulce Maria Arias MD LAB BLOOD ORDERABLES Fin al Result [facility] [address] [place] [phone] * (ABNORMAL) Uric acid (02/15/2025 10:23 AM EST) Uric Acid 2.4(L) 3.4 - 7.0 mg/dL [facility] Blood Venous blood specimen / Unknown 02/15/2025 10:23 AM EST 02/15/2025 11:34 AM EST Dulce Maria Arias MD LAB BLOOD ORDERABLES Fin al Result Performing Organization Address [facility] de Phone Number [facility] [address] [place] [phone] * Rheumatoid Factor (02/15/2025 10:23 AM EST) Pathologist [facility] Rheumatoid Factor <13.0 <15.0 IU/mL [facility] Blood Venous blood specimen / Unknown 02/15/2025 10:23 AM EST 02/15/2025 11:30 AM EST Dulce Maria Arias MD LAB BLOOD ORDERABLES Fin al Result Performing Organization Address [facility] de Phone Number [facility] [address] [place] [phone] * (ABNORMAL) C-reactive Protein (02/15/2025 10:23 AM EST) Pathologist [facility] C Reactive Protein 0.84(H) < or = 0.50 mg/dL [facility] Blood Venous blood specimen / Unknown 02/15/2025 10:23 AM EST 02/15/2025 11:34 AM EST Dulce Maria Arias MD LAB BLOOD ORDERABLES Fin al Result Performing Organization Address [facility] de Phone Number [facility] [address] [place] [phone] * Sed Rate by Marce Dominguez (02/15/2025 10:23 AM EST) Erythrocyte Sedimentation Rate 5 0 - 15 MM/HR [facility] Comment:Patients with polycy themia and many hemoglobin abnormalitiesmay have depressed sed rates whereas patients with anemiamay have elevated sed rates. Blood Venous blood specimen / Unknown 02/15/2025 10:23 AM EST 02/15/2025 11:24 AM EST us Dulce Maria Arias MD LAB BLOOD ORDERABLES Fin al Result Performing Organization Address [facility]/ZIP Co de Phone Number [facility] [address] [place] [phone] * POCT Rapid Influenza A NAVARRETE ID NOW (02/14/2025 2:38 PM EST) Influenza A Negative Negative, Indeterminate [facility] QC Media Lot # [id number] [facility] Lot# Expiration Date [facility] Swab 02/14/2025 2:38 PM EST us Dulce Maria Arias MD POINT OF CARE TEST ENTER /EDIT ORDERABLES Final Result Performing Organization Address [facility] Co de Phone Number [facility] [address] [place] [phone] * POCT Rapid Influenza B NAVARRETE ID NOW (02/14/2025 2:37 PM EST) Influenza B Negative Negative, Indeterminate [facility] QC Media Lot # [id number] [facility] Lot# Expiration Date [facility] Swab 02/14/2025 2:37 PM EST Dulce Maria Arias MD POINT OF CARE TEST ENTER /EDIT ORDERABLES Final Result Performing Organization Address [facility] Co de Phone Number [facility] [address] [place] [phone] * POCT Rapid Covid-19 BinaxNOW (02/14/2025 2:34 PM EST) Rapid COVID Ag Negative QC Media Lot # [id number] Lot# Expiration Date [id number] Swab 02/14/2025 2:34 PM EST Dulce Maria Arias MD POINT OF CARE TEST ENTER /EDIT ORDERABLES Final Result documented in this encounter Visit Diagnoses Diagnosis Arthralgia, unspecified joint- Primary Elevated blood pressure reading Elevated blood pressure reading without diagnosis of hypertension Body aches Generalized pain documented in this encounter Additional Health Concerns Assessment Noted Time PHQ-9 Depression Total Score: 6 03/20/20 2:59 PM EST documented as of this encounter Care Teams Senior Manufacturing Test Engineer Relationship Specialty Start Date End Date Mena Worthy FNP [address] [place] [phone] PCP - General Family Medicine 03/18/22 documented as of this encounter
--- NOTE | ~2025-02-17 | XR_ITS ---
EXAMINATION: XR CHEST 2 VIEWS HISTORY: upper respiratory sx COMPARISON: Comparison is made with the prior examination dated 12/15/2017. FINDINGS: PA and lateral views of the chest are submitted. The lungs are expanded and clear. There is no pleural effusion, pneumothorax, or pulmonary vascular congestion. The heart is normal in size. The bones are intact. XR/XR chest 2V IMPRESSION: No acute cardiopulmonary abnormality. Electronically signed by: Eric Luna MD 02/17/2025 10:30 AM [facility]
--- NOTE | 2025-02-17 08:48 | ECG_ITS ---
Test Reason : CP Blood Pressure : */* mmHG Vent. Rate : 75 BPM Atrial Rate : 75 BPM P-R Int : 144 ms QRS Dur : 90 ms QT Int : 350 ms P-R-T Axes : 64 46 54 degrees QTcB Int : 390 ms Normal sinus rhythm Normal ECG When compared with ECG of 19-Mar-2022 16:27, No significant change was found Referred By: Generic ED Physician Electronically Signed By: KAYLAN VILLANUEVA
[2025-02-17 08:53] VITALS: BP 117/86; PULSE 76; RESP 17; TEMP 36.8; O2SAT 98; BMI 21.2
[2025-02-17 09:36] LABS: MANUAL DIFF FLAG NO
[2025-02-17 09:43] LABS: Hematocrit 46.0 % (42.0-52.0); Hemoglobin 16.4 g/dl (14.0-18.0); Imm Gran Abs Auto 0.02 X10*3/uL (0.00-0.03); Imm Gran Pct Auto 0.4 % (0.0-0.4); Lymphocytes Absolute Auto 1.4 X10*3/uL (1.2-4.9); Mean Corpuscular HGB Conc 35.7 g/dl (31.0-36.0); Mean Corpuscular Hemoglobin 30.3 pg (27.0-33.0); Mean Corpuscular Volume 84.9 fL (80.0-98.0); NRBC Abs Auto 0.000 X10*3/uL (0.0-0.012); NRBC Pct Auto 0.0 /100WBC (0.0-0.2); Platelet Count 108 X10*3/uL (160-400); Red Blood Count 5.42 X10*6/uL (4.60-5.80); White Blood Count 5.2 X10*3/uL (4.8-10.8)
[2025-02-17 09:52] LABS: Alanine Aminotransferase 47 U/L (0-40); Albumin Level 4.0 g/dL (3.5-5.0); Alkaline Phosphatase 83 U/L (39-117); Anion Gap 13 (12-20); Aspartate Amino Transferase 56 U/L (5-37); Blood Urea Nitrogen 15 mg/dL (9-16); Calcium 8.7 mg/dL (8.4-10.2); Carbon Dioxide 23 mmol/L (22-29); Chloride 106 mmol/L (96-108); Creatinine Clr Calc Pharmacy 104.8; Estimated Glomerular Filt Rate > 60; Potassium 3.9 mmol/L (3.3-5.1); Sodium 138 mmol/L (135-145); Total Protein 7.0 g/dL (6.5-8.0)
[2025-02-17 09:59] LABS: Troponin-I High Sensitivity 16.2 ng/L (<3.5-35.0)
[2025-02-17 10:35] LABS: Resp Syncy Virus RNA Qual PCR NEGATIVE (Negative); SARS COV2 PCR INHOUSE NEGATIVE (Negative)
[2025-02-17 11:19] VITALS: BP 96/65; PULSE 66; RESP 20; TEMP 37.1; O2SAT 96
[2025-02-17 11:54] LABS: Appearance Urine Clear; Glucose Urine UA Negative (Negative); PH 6.5 (5.0-9.0); Specific Gravity - Urine 1.025 (1.005-1.025); UMIC TRIGGER UACC YES
--- OUTSIDE RECORDS SUMMARY | 2025-02-17 12:03 | XMS_ITS | Encounter Summary ---
Author Organization [employer] Address [address] [facility] [address] [place] [address] Care Team Providers Care E Commerce Merchandising Coordinator Name Role Phone Mena Worthy Primary Care Provider [phone] Encounter Details Date Type Department Care Team (Latest Contact Info) Description 02/14/2025 Travel Social History Tobacco Use Types Packs/Day Years Used Date Smoking Tobacco: Every Day Cigarettes Smokeless Tobacco: Never Alcohol Use Standard Drinks/Week Comments Never 0 [...] AM EDT documented as of this encounter Plan of Treatment Upcoming Encounters Date Type Department Care Team (Late st Contact Info) Description 03/23/2025 9:45 AM EST Office Visit [facility] [address] [place] [address] Mena Worthy FNP [address] [place] [address] documented as of this encounter Visit Diagnoses Not on filedocumented in this encounter Additional Health Concerns Assessment Noted Time PHQ-9 Depression Total Score: 6 03/20/20 22 2:59 PM EST documented as of this encounter Care Teams E Commerce Merchandising Coordinator Relationship Specialty Start Date End Date Mena Worthy FNP [address] [place] [address] PCP - General Family Medicine 03/18/22 documented as of this encounter
--- OUTSIDE RECORDS SUMMARY | 2025-02-17 12:03 | XMS_ITS | Encounter Summary ---
Author Organization [employer] Address [address] [place] [address] [address] [place] [address] Care Team Providers Care Recreation Programmer Name Role Phone Mena Worthy Primary Care Provider [phone] Reason for Visit * Reason Onset Date Comments Nurse Triage 02/16/2025 Encounter Details Date Type Department Care Team ([facility] st Contact Info) Description 02/16/2025 Telephone [facility] [address] [place], [place] [phone] Mena Worthy FNP [address] [place], [place] [phone] Nurse Triage Social History Tobacco Use Types Packs/Day Years [...] AM EDT documented as of this encounter Miscellaneous Notes * Telephone Encounter - Tammie Rodriguez RN - 02/16/2025 4:17 PM EST TC x2 placed to patient [phone] using S #ID [id number] regarding below message. RN left an VM forthe patient to CB Nurse triage line. Pt to F/U PRN. * Telephone Encounter - Tammie Rodriguez RN - 02/16/2025 2:53 PM EST TC placed to patient [phone] using BLS #ID [id number] regarding below message. RN left an VM for the patient to CB Nurse triage line. RN will re-attempt. * Telephone Encounter - Valerio Jarrett - 02/16/2025 2:33 PM EST Symptom: Pain - Severe Outcome: Schedule an urgent appointment (within 1 hour) or talk to a nurse or provider soon Reason: Caller denied all higher acuity questions The caller accepted this outcome. Contact pt at [phone] documented in this encounter Plan of Treatment Upcoming Encounters Date Type Department Care Team (Late st Contact Info) Description 03/23/2025 9:45 AM EST Office Visit [facility] [address] [place] [address] Mena Worthy FNP [address] [place] [address] documented as of this encounter Visit Diagnoses Not on filedocumented in this encounter Additional Health Concerns Assessment Noted Time PHQ-9 Depression Total Score: 6 03/20/20 22 2:59 PM EST documented as of this encounter Care Teams Recreation Programmer Relationship Specialty Start Date End Date Mena Worthy FNP [address] [place] [address] PCP - General Family Medicine 03/18/22 documented as of this encounter
--- OUTSIDE RECORDS SUMMARY | 2025-02-17 12:03 | XMS_ITS | Encounter Summary ---
Author Organization [employer] Address [address] [place] [address] [address] [place] [address] Care Team Providers Care Cable Former Name Role Phone Mena Worthy Primary Care Provider [phone] Encounter Details Date Type Department Care Team (Late Contact Info) Description 02/17/2025 Orders Only GENERIC EXTERNAL DATA DEPARTMENT Provider, Generic External Data Social History Tobacco Use Types Packs/Day Years [...] Description 03/23/2025 9:45 AM EST Office Visit [facility] [address] [place] [address] Mena Worthy FNP [address] [place] [address] documented as of this encounter Procedures Procedure Name Priority Date/Time Associated Diagnosis Comments URINALYSIS, COMPLETE, WITH REFLEX TO CULTURE Routine 02/17/2025 11:23 AM EST XR CHEST 2 VIEWS Routine 02/17/2025 10:0 0 AM EST HIGH SENSITIVITY TROPONIN I Routine 02/17/2025 9:33 AM EST SARS COV2/INFLUENZA A/B AND RSV RNA QL NAAT Routine 02/17/2025 9:33 AM EST CBC WITH AUTO DIFFERENTIAL Routine 02/17/2025 9:33 AM EST CREATINE KINASE, TOTAL Routine 9:33 AM EST COMPREHENSIVE METABOLIC PANEL Routine 02/17/2025 9:33 AM EST documented in this encounter Results * (ABNORMAL) Urinalysis, Complete, with Reflex to Culture (02/17/2025 11:23 AM EST) Color Urine Yellow [facility] Appearance Urine Clear [facility] PH 6.5 5.0 - 9.0 [facility] Glucose Urine UA Negative Negative mg/dL [facility] Urine Blood Negative Negative [facility] Specific Vest - Urine 1.025 1.005 - 1.025 [facility] Urine Protein 30 (1+)(A) Neg-Trace mg/dL [facility] Urine Ketones 15 Negative mg/dL [facility] Nitrite Urine Negative Negative [facility] Leukocyte Esterase Urine Negative Negative [facility] 02/17/2025 11:2 3 AM EST 02/17/2025 11:43 AM EST Narrative [facility] - 02/17/2025 11:55 AM EST [id number], Clean Catch us Generic External Data Provider LAB URINE ORDERAB LES Final Result [facility] [address] [place] [phone] * XR Chest 2 Views (02/17/2025 10:00 AM EST) Anatomical Region Laterality Modality Chest Radiographic [place] 02/17/2025 10:0 0 AM EST Narrative 02/17/2025 10:33 AM EST [address] [address] XRay Report Signed Patient: Seven Morrow MR#: [id number] : 1970 Acct:[id number] Age/Sex: 54 / M ADM Date: 02/17/25 Loc: HO.ED Attending Dr: Ordering Physician: Danni Walls Date of Service: 02/17/25 Procedure(s): XR chest 2V Accession Number(s): [id number] cc: Mena Worthy; Danni Walls Reason for Exam: upper respiratory sx EXAMINATION: XR CHEST 2 VIEWS HISTORY: upper respiratory sx COMPARISON: Comparison is made with the prior examination dated 12/15/2017. FINDINGS: PA and lateral views of the chest are submitted. The lungs are expanded and clear. There is no pleural effusion, pneumothorax, or pulmonary vascular congestion. The heart is normal in size. The bones are intact. XR/XR chest 2V IMPRESSION: No acute cardiopulmonary abnormality. Electronically signed by: Eric Luna MD 02/17/2025 10:30 AM EST Dictated By: Eric Luna MD Signed By: <Electronically signed by Eric Luna MD in OV> 02/17/25 1030 DD/ 1000 TD/TT: 02/17/25 1005 Warehouse Hand: Procedure Note Donotuseinterpreter, Image - 02/17/[address] [address] XRay Report Signed Patient: Seven MorrowMR#: [id number] : 1970Acct:[id number] Age/Sex: 54 / MADM Date: 02/17/25 Loc: HO.ED Attending Dr: Ordering Physician: Danni Walls Date of Service: 02/17/25 Procedure(s): XR chest 2V Accession Number(s): [id number] cc: Mena Worthy CIVIL LAWYER; Danni Walls Reason for Exam: upper respiratory sx EXAMINATION: XR CHEST 2 VIEWS HISTORY: upper respiratory sx COMPARISON: Comparison is made with the prior examination dated 12/15/2017. FINDINGS: PA and lateral views of the chest are submitted. The lungs are expanded and clear. There is no pleural effusion, pneumothorax, or pulmonary vascular congestion. The heart is normal in size. The bones are intact. XR/XR chest 2V IMPRESSION: No acute cardiopulmonary abnormality. Electronically signed by: Eric Luna MD 02/17/2025 10:30 AM EST RP Dictated By: Eric Luna MD Signed By: <Electronically signed by Eric Luna MD in OV> 02/17/25 1030 DD/ 1000 TD/TT: 02/17/25 1005 Warehouse Hand: [facility] External Provider IMG XR PROCEDURES Final Result * Creatine Kinase, Total (02/17/2025 9:33 AM EST) Creatine Kinase Total 130 38 - 174 U/L [facility] 02/17/2025 9:33 AM EST 02/17/2025 9:35 AM EST Generic External Data Provider LAB BLOOD ORDERAB LES Final Result Performing Organization Address City/State/[facility] Co de Phone Number [facility] [address] [place] [phone] * SARS-CoV-2 RNA, Influenza A/B, and RSV RNA, Ql NAAT (02/17/2025 9:33 AM EST) Influenza A PCR NEGATIVE Negative [facility] Influenza B PCR NEGATIVE Negative [facility] Resp Syncy Virus RNA Qual PCR NEGATIVE Negative [facility] SARS COV2 PCR NEGATIVE Negative [facility] Comment:All test results mus t be correlated with clinical findings.Negative results do not preclude SARS-CoV2, influenza Avirus, influenza B virus and/or RSV infectionand should not be used as the sole basis for treatment orother patient management decisions. Negative results must becombined with clinical observations, patient history, andepidemiological information.This test has not been evaluated for monitoring treatment ofinfection.This test has been authorized by the FDA under an EmergencyUse Authorization (EUA) for use by authorized laboratories.Testing performed on the Truevision GeneXpert utilizingreal-time RT-PCR.All SARS CoV2 and positive influenza A/B results arereported to [facility]. 02/17/2025 9:33 AM EST 02/17/2025 9:35 AM EST Generic External Data Provider LAB MICROBIOLOGY - GENERAL ORDERABLES Final Result Performing Organization Address [facility] Co de Phone Number [facility] [address] [place] [phone] * High Sensitivity Troponin I (02/17/2025 9:33 AM EST) [facility] TROPONIN I HIGH SENSITIVITY 16.2 <3.5 - 35.0 ng/L [facility] Comment:The Aviles high sens itivity Troponin-I results should beused in conjunction with other diagnostic information suchas ECG, clinical observations and information, and patientsymptoms to aid in the diagnosis of UT. 02/17/2025 9:33 AM EST 02/17/2025 9:35 AM EST Generic External Data Provider LAB BLOOD ORDERAB LES Final Result Performing Organization Address [facility] Co de Phone Number [facility] [address] [place] [phone] * (ABNORMAL) Comprehensive Metabolic Panel (02/17/2025 9:33 AM EST) [facility] Sodium 138 135 - 145 mmol/L [facility] Potassium 3.9 3.3 - 5.1 mmol/L [facility] Chloride 106 96 - 108 mmol/L [facility] Carbon Dioxide 23 22 - 29 mmol/L [facility] Anion Gap 13 12 - 20 [facility] Urea Nitrogen (BUN) 15 9 - 16 mg/dL [facility] Creatinine, Serum 0.78 0.5 - 1.4 mg/dL [facility] Creatinine Clr Calc Pharmacy 104.8 [facility] Comment:eGFR (calculated fro m the MDRD study equation) and eCrCl(calculated from the Cockcroft-Gault equation) are based ondifferent parameters and may not yield comparable results.If eCrCl result is absurd, please check patient'sheight/weight. Estimated Glomerular Filt Rate >60 [facility] Comment:Chronic Kidney Disea se: Estimated GFR < 60 mL/min/1.76q4Dtkirw Kidney Disease: Estimated GFR < 15 mL/min/1.73m2 Glucose 102 60 - 115 mg/dL [facility] Calcium 8.7 8.4 - 10.2 mg/dL [facility] Bilirubin, Total 0.6 0.0 - 1.0 mg/dL [facility] Aspartate Amino Transferase 56(H) 5 - 37 U/L [facility] Alanine Aminotransferase 47(H) 0 - 40 U/L [facility] Total Protein 7.0 6.5 - 8.0 g/dL [facility] Albumin Level 4.0 3.5 - 5.0 g/dL [facility] Alkaline Phosphatase 83 39 - 117 U/L [facility] 02/17/2025 9:33 AM EST 02/17/2025 9:35 AM EST us Generic External Data Provider LAB BLOOD ORDERAB LES Final Result [facility] [address] [place] [phone] * (ABNORMAL) CBC auto differential (02/17/2025 9:33 AM EST) White Blood Count 5.2 4.8 - 10.8 X10*3/uL [facility] Red Blood Count 5.42 4.60 - 5.80 X10*6/uL [facility] Hemoglobin 16.4 14.0 - 18.0 g/dl [facility] Hematocrit 46.0 42.0 - 52.0 % [facility] Mean Corpuscular Volume 84.9 80.0 - 98.0 fL [facility] Mean Corpuscular Hemoglobin 30.3 27.0 - 33.0 pg [facility] Mean Corpuscular HGB Conc 35.7 31.0 - 36.0 g/dl [facility] Red Cell Distribution Width 12.5 11.0 - 16.0 % [facility] Platelet Count 108(L) 160 - 400 X10*3/uL [facility] Mean Platelet Volume 9.6 9.4 - 12.4 fL [facility] Neutrophils Percent Auto 56.3 45 - 73 % [facility] Imm Gran Pct Auto 0.4 0.0 - 0.4 % [facility] Lymphocytes Percent Auto 27.3 20 - 40 % [facility] Monocytes Percent Auto 15.4(H) 2 - 11 % [facility] Eosinophils Percent Auto 0.2 0 - 4 % [facility] Basophils Percent Auto 0.4 0 - 2 % [facility] NRBC Pct Auto 0.0 0.0 - 0.2 /100WBC [facility] Neutrophils Absolute Auto 2.9 2.0 - 8.3 x10*3/uL [facility] Imm Gran Abs Auto 0.02 0.00 - 0.03 X10*3/uL [facility] Lymphocytes Absolute Auto 1.4 1.2 - 4.9 X10*3/uL [facility] Monocytes Absolute Auto 0.8 0.1 - 1.2 X10*3/uL [facility] Eosinophils Absolute Auto 0.0 0.0 - 0.4 X10*3/uL [facility] Basophils Absolute Auto 0.0 0.0 - 0.2 X10*3/uL [facility] NRBC Abs Auto 0.000 0.0 - 0.012 X10*3/uL [facility] 02/17/2025 9:33 AM EST 02/17/2025 9:35 AM EST us Generic External Data Provider LAB BLOOD ORDERAB LES Final Result [facility] [address] [place] [phone] documented in this encounter Visit Diagnoses Not on filedocumented in this encounter Additional Health Concerns Assessment Noted Time PHQ-9 Depression Total Score: 6 03/20/20 22 2:59 PM EST documented as of this encounter Care Teams Cable Former Relationship Specialty Start Date End Date Mena Worthy FNP [address] [place] [address] PCP - General Family Medicine 03/18/22 documented as of this encounter
--- OUTSIDE RECORDS SUMMARY | 2025-02-17 12:04 | XMS_ITS | Clinical Summary ---
Author Organization [employer] Address [address] [facility] [address] [place] [address] Care Team Providers Care Instrument Technologist Name Role Phone Mena Worthy TELEPHONE SUPERVISOR Primary Care Provider [phone] Allergies No known active allergies Medications acetaminophen (Tylenol) 500 MG tablet Take 1 tablet by mouth every 6 (six) hours if needed. 2 Active Diclofenac Sodium 1 % gel Apply 2 g topically every 6 (six) hours if needed. Active Blood Pressure Monitoring (Blood Pressure Cuff) misc Use daily as prescribed 1 each 5 Active Active Problems Problem Noted Date Diagnosed Date Elevated blood pressure reading 02/14/2025 Assessment & Plan (02/14/2025 4:07 PM EST): - No history of hypertension, current smoker - Advised to quit smoking, avoid any recreational substances or alcohol - Monitor blood pressure at home daily, record readings, and bring results to follow-up appointment in 2-3 weeks with PCP. Body aches 02/14/2025 Arthralgia 02/14/2025 Assessment & Plan (02/14/2025 4:06 PM EST): Most likely osteoarthritis, rule out inflammatory arthritis Can take Tylenol as needed, will call back as needed abnormal lab results. Healthcare maintenance 12/03/2023 Overview (12/03/2023): -Colonoscopy: referral to GI placed Feb 2022 Polyarthralgia 05/17/2021 Assessment & Plan (03/20/2022 6:03 PM EST): -Persistent polyarthralgias x years -CRP, RF, DULCE MARIA, and BMP were WNL 05/01/21 -Repeat labs for rheum/autoimmune causes of polyarthralgia, will also r/o lyme Posttraumatic stress disorder 05/17/2021 Mixed anxiety and depressive disorder 11/27/2015 Encounters Date Type Department Care Team Description 02/17/2025 Orders Only GENERIC EXTERNAL DATA DEPARTMENT Provider, Generic External Data 02/16/2025 Telephone [facility] [address] [place] [address] Mena Worthy FNP Nurse Triage 02/14/2025 2:20 PM EST Office Visit [facility] [address], [place] [phone] Dulce Maria Arias MD Arthralgia, unspecified joint (Primary Dx); Elevated blood pressure reading; Body aches 02/14/2025 Travel 12/02/2024 Telephone [facility] [address], [place] [phone] Mena Worthy FNP Recall; Transition Of Care (Tcm) 11/17/2024 Telephone [facility] [address] [place] [address] Mena Worthy FNP from Last 3 Months Immunizations Immunization Administration Dates Next Due TD (adult), 2 Lf tetanus tox oid, preservative free, adsorbed 01/22/2019 Td (adult), 5 Lf tetanus tox oid, preservative free, adsorbed 12/20/2014 Family History Medical History Relation Name Comments Arthritis Father Relation Name Status Comments Father Social History Tobacco Use Types Packs/Day Years [...] not to disclose 2021 10:18 AM EDT Last Filed Vital Signs Vital Sign Reading [...] Mass Index 23.76 02/14/2025 2:22 PM EST Plan of Treatment Upcoming Encounters Date Type Department Care Team (Late st Contact Info) Description 03/23/2025 9:45 AM EST Office Visit [facility] [address] [place] [address] Mena Worthy, ARCHANA [address] [place] [address] Health Maintenance Due Date Last Done Comments CT Colonography 1972 Colonoscopy 1972 Colorectal Cancer Screening 1972 FIT DNA/Cologuard 1972 FIT 1972 FOBT 1972 SDOH Screening 1972 Sigmoidoscopy 1972 Disability Screening 1972 Alcohol/Substance Use Screening 1984 Family Planning (PISQ) 09/10/1987 Hepatitis B Vaccines (1 of 3 - 19+ 3-dose series) 09/10/1991 Pneumococcal Vaccine: 50+ Years (1 of 2 - PCV) 09/10/1991 DTaP/Tdap/Td Vaccines (1 - Tdap) 01/23/2019 01/22/2019, 12/20/2014 Zoster Vaccines (1 of 2) 2022 Depression Screening 03/20/2023 03/20/2022, 03/20/2022 COVID-19 Vaccine (1 - 2024-2 6 season) 2024 Influenza Vaccine (#1) 2024 Tobacco Screening 02/14/2026 02/14/2025 Lipid Panel 02/15/2030 02/15/2025, 05/01/2021 RSV Patients and Patients Aged 60 years or older (1 - 1-dose 75+ series) 09/10/2047 HIV Screening Completed 02/15/2025, 05/01/2021 Hepatitis C Screening Completed 02/15/2025 , 05/01/2021 HIB Vaccines Aged Out No longer eligi ble based on patient's age to complete this topic HPV Vaccines Aged Out No longer eligi ble based on patient's age to complete this topic Hepatitis A Vaccines Aged Out No long er eligible based on patient's age to complete this topic IPV Vaccines Aged Out No longer eligi ble based on patient's age to complete this topic Meningococcal B Vaccine Aged Out No l onger eligible based on patient's age to complete this topic Meningococcal Vaccine Aged Out No jeny yue eligible based on patient's age to complete this topic RSV under 20 months Aged Out No longe r eligible based on patient's age to complete this topic Rotavirus Vaccines Aged Out No longer eligible based on patient's age to complete this topic Procedures Procedure Name Priority Date/Time Associated Diagnosis Comments URINALYSIS, COMPLETE, WITH REFLEX TO CULTURE Routine 02/17/2025 11:23 AM EST XR CHEST 2 VIEWS Routine 02/17/2025 10:0 0 AM EST CREATINE KINASE, TOTAL Routine 9:33 AM EST HIGH SENSITIVITY TROPONIN I Routine 02/17/2025 9:33 AM EST COMPREHENSIVE METABOLIC PANEL Routine 02/17/2025 9:33 AM EST CBC WITH AUTO DIFFERENTIAL Routine 02/17/2025 9:33 AM EST SARS COV2/INFLUENZA A/B AND RSV RNA QL NAAT Routine 02/17/2025 9:33 AM EST LIPID PANEL WITH REFLEX TO DIRECT LDL Routine 02/15/2025 10:23 AM EST Elevated blood pressure reading COMPREHENSIVE METABOLIC PANEL Routine 02/15/2025 10:23 AM EST Arthralgia, unspecified joint Body aches HIV 1/2 ANTIGEN/ANTIBODY, FOURTH GENERATION W/RFL Routine 02/15/2025 10:23 AM EST Arthralgia, unspecified joint Body aches TSH W/REFLEX TO FT4 Routine 02/15/2025 1 0:23 AM EST Arthralgia, unspecified joint HEPATITIS PANEL, GENERAL Routine 02/15/2025 10:23 AM EST Arthralgia, unspecified joint CBC WITH AUTO DIFFERENTIAL Routine 02/15/2025 10:23 AM EST Arthralgia, unspecified joint Elevated blood pressure reading Body aches URIC ACID Routine 02/15/2025 10:23 AM EST Arthralgia, unspecified joint RHEUMATOID FACTOR Routine 02/15/2025 10: 23 AM EST Arthralgia, unspecified joint C-REACTIVE PROTEIN Routine 02/15/2025 10 :23 AM EST Arthralgia, unspecified joint SED RATE BY MODIFIED WESTERGREN Routine 02/15/2025 10:23 AM EST Arthralgia, unspecified joint DULCE MARIA SCREEN, IFA, W/REFL TITER AND PATTERN Routine 02/15/2025 10:23 AM EST Arthralgia, unspecified joint POCT INFLUENZA A (ID NOW RAPID MOLECULAR) Routine 02/14/2025 2:38 PM EST Body aches POCT INFLUENZA B (ID NOW RAPID MOLECULAR) Routine 02/14/2025 2:37 PM EST Body aches POCT RAPID COVID ANTIGEN Routine 02/14/2025 2:34 PM EST Body aches from Last 3 Months Results * (ABNORMAL) Urinalysis, Complete, with Reflex to Culture (02/17/2025 11:23 AM EST) Color Urine Yellow [facility] Appearance Urine Clear [facility] PH 6.5 5.0 - 9.0 [facility] Glucose Urine UA Negative Negative mg/dL [facility] Urine Blood Negative Negative [facility] Specific Belding - Urine 1.025 1.005 - 1.025 [facility] Urine Protein 30 (1+)(A) Neg-Trace mg/dL [facility] Urine Ketones 15 Negative mg/dL [facility] Nitrite Urine Negative Negative [facility] Leukocyte Esterase Urine Negative Negative [facility] RBC Urine 0-2 0 - 2 /HPF [facility] Urine WBC 0-5 0 - 5 /HPF [facility] Urine Squamous Epithelial Cell 0-2 0 - 2 /HPF [facility] Urine Bacteria None Seen None Seen [facility] Hyaline Casts, Urine 0-2 0 - 2 /LPF [facility] 02/17/2025 11:2 3 AM EST 02/17/2025 11:43 AM EST Narrative [facility] - 02/17/2025 12:03 PM EST [id number], Clean Catch us Generic External Data Provider LAB URINE ORDERAB LES Final Result Performing Organization Address City/State/[facility] Co de Phone Number [facility] [address] [place] [phone] * XR Chest 2 Views (02/17/2025 10:00 AM EST) Anatomical Region Laterality Modality Chest Radiographic Hoa ging 02/17/2025 10:0 0 AM EST Narrative 02/17/2025 10:33 AM EST [address] [address] XRay Report Signed Patient: Seven Morrow MR#: [id number] : 1970 Acct:[id number] Age/Sex: 54 / M ADM Date: 02/17/25 Loc: HO.ED Attending Dr: Ordering Physician: Danni Walls Date of Service: 02/17/25 Procedure(s): XR chest 2V Accession Number(s): [id number] cc: Mena Worthy; Danni Walls Reason for [...] 02/17/25 1030 DD/ 1000 TD/TT: 02/17/25 100[address] Floor Manager: Procedure Note Donotuseinterpreter, Image - 02/17/2025 [place] [address] XRay Report Signed Patient: Silvino Morrow#: [id number] : 1970Acct:[id number] Age/Sex: 54 / MADM Date: 02/17/25 Loc: HO.ED Attending Dr: Ordering Physician: Danni Walls Date of Service: 02/17/25 Procedure(s): XR chest 2V Accession Number(s): [id number] cc: Mena Worthy; Danni Walls Reason for [...] 02/17/25 1030 DD/ 1000 TD/TT: 02/17/25 1005 [address] Floor Manager: [facility] External Provider IMG XR PROCEDURES Final Result * High Sensitivity Troponin I (02/17/2025 9:33 AM EST) Pathologist [facility] [place] TROPONIN I HIGH SENSITIVITY 16.2 <3.5 - 35.0 ng/L [facility] Comment:The Navarrete high sens itivity Troponin-I results should beused in conjunction with other diagnostic information suchas ECG, clinical observations and information, and patientsymptoms to aid in the diagnosis of ND. 02/17/2025 9:33 AM EST 02/17/2025 9:35 AM EST Generic External Data Provider LAB BLOOD ORDERAB LES Final Result [facility] [address] [place] [phone] * SARS-CoV-2 RNA, Influenza A/B, and RSV RNA, Ql NAAT (02/17/2025 9:33 AM EST) Pathologist [facility] [place] Influenza A PCR NEGATIVE Negative [facility] Influenza B PCR NEGATIVE Negative [facility] Resp Syncy Virus RNA Qual PCR NEGATIVE Negative [facility] SARS COV2 PCR NEGATIVE Negative [facility] Comment:All test results mus t be [...] use by authorized laboratories.Testing performed on the [employer] GeneXpert utilizingreal-time RT-PCR.All SARS CoV2 and positive influenza A/B results arereported to [facility]. 02/17/2025 9:33 AM EST 02/17/2025 9:35 AM EST us Generic External Data Provider LAB MICROBIOLOGY - GENERAL ORDERABLES Final Result [facility] [address] [place] [phone] * (ABNORMAL) CBC auto differential (02/17/2025 9:33 AM EST) Only the most recent of2 resultswithin the time period is included. White Blood Count 5.2 4.8 - 10.8 X10*3/uL [facility] Red Blood Count 5.42 4.60 - 5.80 X10*6/uL [facility] Hemoglobin 16.4 14.0 - 18.0 g/dl [facility] Hematocrit 46.0 42.0 - 52.0 % [facility] Mean Corpuscular Volume 84.9 80.0 - 98.0 fL [facility] Mean Corpuscular Hemoglobin 30.3 27.0 - 33.0 pg [facility] Mean Corpuscular HGB Conc 35.7 31.0 - 36.0 g/dl [facility] Red Cell Distribution Width 12.5 11.0 - 16.0 % [facility] Platelet Count 108(L) 160 - 400 X10*3/uL [facility] Mean Platelet Volume 9.6 9.4 - 12.4 fL [facility] Neutrophils Percent Auto 56.3 45 - 73 % [facility] Imm Gran Pct Auto 0.4 0.0 - 0.4 % [facility] Lymphocytes Percent Auto 27.3 20 - 40 % [facility] Monocytes Percent Auto 15.4(H) 2 - 11 % [facility] Eosinophils Percent Auto 0.2 0 - 4 % [facility] Basophils Percent Auto 0.4 0 - 2 % [facility] NRBC Pct Auto 0.0 0.0 - 0.2 /100WBC [facility] Neutrophils Absolute Auto 2.9 2.0 - 8.3 x10*3/uL [facility] Imm Gran Abs Auto 0.02 0.00 - 0.03 X10*3/uL [facility] Lymphocytes Absolute Auto 1.4 1.2 - 4.9 X10*3/uL [facility] Monocytes Absolute Auto 0.8 0.1 - 1.2 X10*3/uL [facility] Eosinophils Absolute Auto 0.0 0.0 - 0.4 X10*3/uL [facility] Basophils Absolute Auto 0.0 0.0 - 0.2 X10*3/uL [facility] NRBC Abs Auto 0.000 0.0 - 0.012 X10*3/uL [facility] 02/17/2025 9:33 AM EST 02/17/2025 9:35 AM EST us Generic External Data Provider LAB BLOOD ORDERAB LES Final Result Performing Organization Address [facility] Co de Phone Number [facility] [address] [place] [phone] * Creatine Kinase, Total (02/17/2025 9:33 AM EST) Creatine Kinase Total 130 38 - 174 U/L [facility] 02/17/2025 9:33 AM EST 02/17/2025 9:35 AM EST us Generic External Data Provider LAB BLOOD ORDERAB LES Final Result Performing Organization Address [facility] Co de Phone Number [facility] [address] [place] [phone] * (ABNORMAL) Comprehensive Metabolic Panel (02/17/2025 9:33 AM EST) Only the most recent of2 resultswithin the time period is included. Sodium 138 135 - 145 mmol/L [facility] Potassium 3.9 3.3 - 5.1 mmol/L [facility] Chloride 106 96 - 108 mmol/L [facility] Carbon Dioxide 23 22 - 29 mmol/L [facility] Anion Gap 13 12 - 20 [facility] Urea Nitrogen (BUN) 15 9 - 16 mg/dL [facility] Creatinine, Serum 0.78 0.5 - 1.4 mg/dL [facility] Creatinine Clr Calc Pharmacy 104.8 [facility] Comment:eGFR (calculated fro m the MDRD study equation) and eCrCl(calculated from the Cockcroft-Gault equation) are based ondifferent parameters and may not yield comparable results.If eCrCl result is absurd, please check patient'sheight/weight. Estimated Glomerular Filt Rate >60 [facility] Comment:Chronic Kidney Disea se: Estimated GFR < 60 mL/min/1.00k2Yrvdei Kidney Disease: Estimated GFR < 15 mL/min/1.73m2 Glucose 102 60 - 115 mg/dL [facility] Calcium 8.7 8.4 - 10.2 mg/dL [facility] Bilirubin, Total 0.6 0.0 - 1.0 mg/dL [facility] Aspartate Amino Transferase 56(H) 5 - 37 U/L [facility] Alanine Aminotransferase 47(H) 0 - 40 U/L [facility] Total Protein 7.0 6.5 - 8.0 g/dL [facility] Albumin Level 4.0 3.5 - 5.0 g/dL [facility] Alkaline Phosphatase 83 39 - 117 U/L [facility] 02/17/2025 9:33 AM EST 02/17/2025 9:35 AM EST us Generic External Data Provider LAB BLOOD ORDERAB LES Final Result [facility] [address] [place] [phone] * TSH with Reflex to Free T4 (02/15/2025 10:23 AM EST) TSH reflex Free T4 1.37 0.32 - 4.0 uIU/mL [facility] Blood 02/15/2025 10:2 3 AM EST 02/15/2025 11:34 AM EST us Dulce Maria Arias MD LAB BLOOD ORDERABLES Fin al Result Performing Organization Address [facility]/ZIP Co de Phone Number [facility] [address] [place] [phone] * (ABNORMAL) Lipid Panel with Reflex to Direct LDL (02/15/2025 10:23 AM EST) Triglycerides 80 <150 mg/dL [facility] Comment:Desirable Triglyceri de: less than 150 mg/dLBorderline High Triglyceride 150-199 mg/dLHigh Triglyceride: 200-499 mg/dLVery High Triglyceride: greater than or equal to 5OO mg/dL Cholesterol 115 <200 mg/dL [facility] Comment:Desirable Cholestero l: less than 200 mg/dLBorderline High Cholesterol: 200-239 mg/dLHigh Cholesterol: greater than 239 mg/dL LDL Cholesterol Calculated 71 <100 mg/dL [facility] Comment:Desirable LDL: less than 100 mg/dLNear Optimal/Above Optimal LDL: 110- 129 mg/dLBorderline High LDL: 130-159 mg/dLHigh LDL: 160-189 mg/dLVery High LDL: greater than or equal to 190 mg/dL HDL Cholesterol 28(L) >40 mg/dL [facility] Comment:Desirable HDL: great er than 40 mg/dL Note: This HDL assay may give artificially low results in patients with liver disease. Blood 02/15/2025 10:2 3 AM EST 02/15/2025 11:34 AM EST Dulce Maria Arias MD LAB BLOOD ORDERABLES Fin al Result Performing Organization Address City/[facility] Co de Phone Number [facility] [address] [place] [phone] * Hepatitis Panel, General (02/15/2025 10:23 AM EST) Hepatitis A IgM Nonreactive Nonreactive [facility] Comment:IgM antibodies to VEGAS V not detected; does not exclude earlyacute or recovered HAV infection. ~Hepatitis B Surface Antibody NONREACTIVE Nonreactive [facility] Comment:Nonreactive: < 8.00 mIU/mL Hepatitis B Core Antibody Nonreactive Nonreactive [facility] Hepatitis C Antibody Nonreactive Nonreactive [facility] Comment:Antibodies to HCV no t detected; does not exclude early acuteHCV infection. Hepatitis B Surface Ag Negative Negative [facility] Blood 02/15/2025 10:2 3 AM EST 02/15/2025 11:30 AM EST Dulce Maria Arias MD LAB BLOOD ORDERABLES Fin al Result Performing Organization Address [facility] Co de Phone Number [facility] [address] [place] [phone] * HIV-1/2 Antigen and Antibodies, Fourth Generation, with Reflexes (02/15/2025 10:23 AM EST) HIV AB/AG Nonreactive Nonreactive [facility] Comment:HIV-1 p24 Ag and/or HIV-1/HIV-2 Ab not detected.A test result that is nonreactive does not exclude thepossibility of exposure to or infection with HIV-1 and/orHIV-2. Nonreactive results in this assay for individualswith prior exposure to HIV-1 and/or HIV-2 may be due toantigen and antibody levels that are below the limit ofdetection of this assay.The [employer] HIV Ag/Ab Combo assay result andsupplemental assay results should be interpreted inconjunction with the patient's clinical presentation,history and other laboratory results. If the results areinconsistent with clinical evidence, additional testing issuggested to confirm the result. Blood Venous blood specimen / Unknown 02/15/2025 10:23 AM EST 02/15/2025 11:30 AM EST Dulce Maria Arias MD LAB BLOOD ORDERABLES Fin al Result Performing Organization Address City/[facility]/ZIP Co de Phone Number [facility] [address] [place] [phone] * Sed Rate by Modified Westergren (02/15/2025 10:23 AM EST) Erythrocyte Sedimentation Rate 5 0 - 15 MM/HR [facility] Comment:Patients with polycy themia and many hemoglobin abnormalitiesmay have depressed sed rates whereas patients with anemiamay have elevated sed rates. Blood Venous blood specimen / Unknown 02/15/2025 10:23 AM EST 02/15/2025 11:24 AM EST Dulce Maria Arias MD LAB BLOOD ORDERABLES Fin al Result Performing Organization Address [facility] Co de Phone Number [facility] [address] [place] [phone] * Rheumatoid Factor (02/15/2025 10:23 AM EST) Rheumatoid Factor <13.0 <15.0 IU/mL [facility] Blood Venous blood specimen / Unknown 02/15/2025 10:23 AM EST 02/15/2025 11:30 AM EST Dulce Maria Arias MD LAB BLOOD ORDERABLES Fin al Result Performing Organization Address City/[facility] Co de Phone Number [facility] [address] [place] [phone] * (ABNORMAL) C-reactive Protein (02/15/2025 10:23 AM EST) C Reactive Protein 0.84(H) < or = 0.50 mg/dL [facility] Blood Venous blood specimen / Unknown 02/15/2025 10:23 AM EST 02/15/2025 11:34 AM EST us Dulce Maria Arias MD LAB BLOOD ORDERABLES Fin al Result Performing Organization Address City/[facility]/ZIP Co de Phone Number [facility] [address] [place] [phone] * (ABNORMAL) Uric acid (02/15/2025 10:23 AM EST) Uric Acid 2.4(L) 3.4 - 7.0 mg/dL [facility] Blood Venous blood specimen / Unknown 02/15/2025 10:23 AM EST 02/15/2025 11:34 AM EST us Dulce Maria Arias MD LAB BLOOD ORDERABLES Fin al Result Performing Organization Address [facility]/ZIP Co de Phone Number [facility] [address] [place] [phone] * POCT Rapid Influenza A NAVARRETE ID NOW (02/14/2025 2:38 PM EST) Influenza A Negative Negative, Indeterminate [facility] QC Media Lot # [id number] [facility] Lot# Expiration Date ,026 [facility] Swab 02/14/2025 2:38 PM EST us Dulce Maria Arias MD POINT OF CARE TEST ENTER /EDIT ORDERABLES Final Result Performing Organization Address City/[facility] Co de Phone Number [facility] [address] [place] [phone] * POCT Rapid Influenza B NAVARRETE ID NOW (02/14/2025 2:37 PM EST) Influenza B Negative Negative, Indeterminate [facility] QC Media Lot # [id number] [facility] Lot# Expiration Date [facility] Swab 02/14/2025 2:37 PM EST us Dulce Maria Arias MD POINT OF CARE TEST ENTER /EDIT ORDERABLES Final Result [facility] [address] [place] [phone] [phone] * POCT Rapid Covid-19 BinaxNOW (02/14/2025 2:34 PM EST) Rapid COVID Ag Negative QC Media Lot # [id number] Lot# Expiration Date Swab 02/14/2025 2:34 PM EST us Dulce Maria Arias MD POINT OF CARE TEST ENTER /EDIT ORDERABLES Final Result from Last 3 Months Insurance [facility] C3 Care Teams Instrument Technologist Relationship Specialty Start Date End Date Mena Worthy FNP [address] [place], [place] [phone] PCP - General Family Medicine 03/18/22
[2025-02-17 12:09] LABS: Troponin-I High Sensitivity 17.0 ng/L (<3.5-35.0)
[2025-02-17 12:12] LABS: Cannabinoid Screen Urine POSITIVE (Not Detect)
--- NOTE | 2025-02-17 12:22 | ED_ITS ---
HPI - General Adult General Chief complaint: General Medical Stated complaint: Chest pain Time Seen by Provider: 02/17/25 09:20 Source: patient and cognos lead (central african) Mode of arrival: ambulatory Limitations: language barrier (central african) History of Present Illness ED Provider: DANNI WALLS PA-C HPI narrative: 54 year old [place]wanan speaking male presents to the ED today for evaluation of a multiple symptoms. He reports general body aches, headache, chest discomfort, night sweats, subjective fevers, cough, diarrhea, and abdominal pain x5 days. He was evaluated at the walk in clinic two days ago for same. He states that he had blood drawn and was discharged home without any medications. He does not recall which labs were drawn. Endorses continues symptoms. Admits to taking an unknown antibiotic he had a home without improvement. Denies trialing Tylenol/Motrin. Admits to smoking cigarettes and marijuana. Denies any other illicit substance use. Denies EtOH consumption. Denies sick contacts. Related Data Previous Rx's ?Medication ?Instructions ?Recorded prednisone 20 mg tablet 60 mg (3 x 20 mg) PO DAILY 5 days 11/30/20 #15 tabs diclofenac sodium 1 % topical gel 2 g topical QID #100 grams 05/01/21 (Voltaren Arthritis Pain) famotidine 20 mg tablet (Pepcid) 20 mg PO DAILY PRN ab dominal 05/01/21 discomfort #30 tabs gabapentin 100 mg capsule 100 mg PO BID 10 days #20 ca ps 05/01/21 Allergies Allergy/AdvReac Type Severity Reaction Status Date / Time No Known Allergies (No Known Allergy Verified 02/17/25 08:57 Allergies*) Review of Systems 2 Review of Systems: Yes all other systems are reviewed and are negative [facility] Past Medical History Attestation statement: The following information was validated with the patient. Source: old records reviewed and nursing notes reviewed Medical History Depression Arthritis No pertinent past medical history Social History Social History Patient Tobacco Use Status: Tobacco use Unknown Substance Use Type: Marijuana Physical Exam ED Vital Signs: Vital Signs - 24 hr 02/17/25 08:53 02/17/25 11:19 Temperature 98.3 F 98.7 F Pulse Rate 76 66 Respiratory Rate 17 20 Blood Pressure 117/86 96/65 Pulse Oximetry 98 96 Oxygen Delivery Method Room Air Room Air BMI result Body Mass Index 21.2 vital signs stable General: Well appearing, in no acute distress. Skin: Warm, dry, intact. No rashes or lesions. Head: Normocephalic, atraumatic. EENT: Hearing is intact b/l. Conjunctiva clear. Sclera is anicteric. PERRLA. EOM intact. Moist mucous membranes.? Neck: Negative Brudzinski's, Kernig's Cardiac: Chest wall symmetric. RRR Lungs: Normal respiratory effort without accessory muscle use. CTA bilaterally. Abdomen: Soft, non-tender, non-distended. No rebound tenderness or guarding. Positive BS x4. Back: No midline spinous or paraspinal tenderness. No step off deformity. Ext: Upper and lower extremities atraumatic, without tenderness, deformity, swelling or erythema. Full ROM throughout Neuro: AOx3. Normal speech. Ambulating with steady gait. Course Course Course Narrative: CBC unremarkable. Chemistry without acute electrolyte abnormality requiring intervention. Trop WNL x2. Urine without infection. ekg and cxr unremarkable. cpk wnl - no rhabdo. viral swabs negative. > TB and Lyme testing pending. Patient will be contacted with any positive results. Patient has remained stable throughout ED visit today. Discussed worrisome signs and symptoms and when to return to the ED. All questions answered at this time. Patient is agreeable with disposition and stable for discharge. Medications Administered Discontinued Medications Generic Name Dose Route Start Last Admin Trade Name Freq PRN Reason Stop Dose Admin Ketorolac Tromethamine 30 mg 02/17/25 10:34 02/17/25 11:04 Ketorolac Tromethamine 30 Mg/Ml Vial IM 02/17/25 10:35 30 mg ONCE ONE Administration Medical Decision Making Medical Decision Making MDM Narrative: 54 year old [place] speaking male presents to the ED today for evaluation of general body aches, headache, chest discomfort, night sweats, subjective fevers, cough, diarrhea, and abdominal pain x5 days. vital signs stable. his exam is benign. he is well appearing, in NAD. Differential diagnosis includes anemia, electrolyte abnormality, rhabdomyolysis, dehydration, TB, Lyme disease, pneumonia, UTI, viral syndrome, arthritis Plan for labs, ekg, cxr, lyme/tick testing. Differential Diagnosis Differential Diagnoses: The differential diagnosis associated with the presentation includes as above. Admission/Observation not indicated. Lab Data MDM Lab Attestation statement: I reviewed the patient's lab results. as above. 02/17/25 09:33 02/17/25 09:33 Labs: Lab Results 02/17/25 02/17/25 02/17/25 Range/Units 09:33 11:23 11:26 WBC 5.2 (4.8-10.8) X10*3/uL RBC 5.42 (4.60-5.80) X10*6/uL Hgb 16.4 (14.0-18.0) g/dl Hct 46.0 (42.0-52.0) % MCV 84.9 (80.0-98.0) fL MCH 30.3 (27.0-33.0) pg MCHC 35.7 (31.0-36.0) g/dl RDW 12.5 (11.0-16.0) % Plt Count 108 L (160-400) X10*3/uL MPV 9.6 (9.4-12.4) fL Immature Gran % (Auto) 0.4 (0.0-0.4) % Neut % (Auto) 56.3 (45-73) % Lymph % (Auto) 27.3 (20-40) % Leslie % (Auto) 15.4 H (2-11) % Eos % (Auto) 0.2 (0-4) % Baso % (Auto) 0.4 (0-2) % Lymph # (Auto) 1.4 (1.2-4.9) X10*3/uL Leslie # (Auto) 0.8 (0.1-1.2) X10*3/uL Eos # (Auto) 0.0 (0.0-0.4) X10*3/uL Baso # (Auto) 0.0 (0.0-0.2) X10*3/uL Abs Immat Gran (auto) 0.02 (0.00-0.03) X10*3/uL Absolute Neuts (auto) 2.9 (2.0-8.3) x10*3/uL Absolute Nucleated RBC 0.000 (0.0-0.012) X10*3/uL Nucleated RBC % (auto) 0.0 (0.0-0.2) /100WBC Sodium 138 (135-145) mmol/L Potassium 3.9 (3.3-5.1) mmol/L Chloride 106 (96-108) mmol/L Carbon Dioxide 23 (22-29) mmol/L Anion Gap 13 (12-20) BUN 15 (9-16) mg/dL Creatinine 0.78 (0.5-1.4) mg/dL Estim Creat Clear Calc 104.8 Estimated GFR > 60 Random Glucose 102 (60-115) mg/dL Calcium 8.7 (8.4-10.2) mg/dL Total Bilirubin 0.6 (0.0-1.0) mg/dL AST 56 H (5-37) U/L ALT 47 H (0-40) U/L Alkaline Phosphatase 83 (39-117) U/L Total Creatine Kinase 130 (38-174) U/L Troponin I High Sens 16.2 D 17.0 (<3.5-35.0) ng/L Total Protein 7.0 (6.5-8.0) g/dL Albumin 4.0 (3.5-5.0) g/dL Urine Color Yellow Urine Appearance Clear Urine pH 6.5 (5.0-9.0) Ur Specific [place] 1.025 (1.005-1.025) Urine Protein 30 (1+) H (Neg-Trace) mg/dL Urine Glucose (UA) Negative (Negative) mg/dL Urine Ketones 15 (Negative) mg/dL Urine Blood Negative (Negative) Urine Nitrite Negative (Negative) Ur Leukocyte Esterase Negative (Negative) Urine RBC 0-2 (0-2) /HPF Urine WBC 0-5 (0-5) /HPF Ur Squamous Epith Cells 0-2 (0-2) /HPF Urine Bacteria None Seen (None Seen) Hyaline Casts 0-2 (0-2) /LPF Urine Opiates Screen Not Detected (Not Detect) Ur Buprenorphine Scrn Not Detected (Not Detect) ng/mL Ur Oxycodone Screen Not Detected (Not Detect) ng/mL Urine Methadone Screen Not Detected (Not Detect) ng/mL Urine Fentanyl Screen Not Detected (Not Detect) Ur Barbiturates Screen Not Detected (Not Detect) Ur Phencyclidine Scrn Not Detected (Not Detect) Ur Amphetamines Screen Not Detected (Not Detect) U Benzodiazepines Scrn Not Detected (Not Detect) Urine Cocaine Screen Not Detected (Not Detect) U Marijuana (THC) Screen POSITIVE H (Not Detect) A.phagocytophil DNA PCR (NOT DETECTED) Babesia microti DNA PCR (NOT DETECTED) Borrelia sp DNA (PCR) (NOT DETECTED) Lyme Screen IgG & IgM index Lyme Progressive Test Borrelia miyamotoi (PCR) (NOT DETECTED) E.chaffeensis DNA (PCR) (NOT DETECTED) Influenza Type A (PCR) NEGATIVE (Negative) Influenza Type B (PCR) NEGATIVE (Negative) RSV RNA Qual (PCR) NEGATIVE (Negative) SARS-CoV-2 RNA (RT-PCR) NEGATIVE (Negative) Tick-borne Disease PCR 02/17/25 Range/Units 12:33 WBC (4.8-10.8) X10*3/uL RBC (4.60-5.80) X10*6/uL Hgb (14.0-18.0) g/dl Hct (42.0-52.0) % MCV (80.0-98.0) fL MCH (27.0-33.0) pg MCHC (31.0-36.0) g/dl RDW (11.0-16.0) % Plt Count (160-400) X10*3/uL MPV (9.4-12.4) fL Immature Gran % (Auto) (0.0-0.4) % Neut % (Auto) (45-73) % Lymph % (Auto) (20-40) % Leslie % (Auto) (2-11) % Eos % (Auto) (0-4) % Baso % (Auto) (0-2) % Lymph # (Auto) (1.2-4.9) X10*3/uL Leslie # (Auto) (0.1-1.2) X10*3/uL Eos # (Auto) (0.0-0.4) X10*3/uL Baso # (Auto) (0.0-0.2) X10*3/uL Abs Immat Gran (auto) (0.00-0.03) X10*3/uL Absolute Neuts (auto) (2.0-8.3) x10*3/uL Absolute Nucleated RBC (0.0-0.012) X10*3/uL Nucleated RBC % (auto) (0.0-0.2) /100WBC Sodium (135-145) mmol/L Potassium (3.3-5.1) mmol/L Chloride (96-108) mmol/L Carbon Dioxide (22-29) mmol/L Anion Gap (12-20) BUN (9-16) mg/dL Creatinine (0.5-1.4) mg/dL Estim Creat Clear Calc Estimated GFR Random Glucose (60-115) mg/dL Calcium (8.4-10.2) mg/dL Total Bilirubin (0.0-1.0) mg/dL AST (5-37) U/L ALT (0-40) U/L Alkaline Phosphatase (39-117) U/L Total Creatine Kinase (38-174) U/L Troponin I High Sens (<3.5-35.0) ng/L Total Protein (6.5-8.0) g/dL Albumin (3.5-5.0) g/dL Urine Color Urine Appearance Urine pH (5.0-9.0) Ur Specific [place] (1.005-1.025) Urine Protein (Neg-Trace) mg/dL Urine Glucose (UA) (Negative) mg/dL Urine Ketones (Negative) mg/dL Urine Blood (Negative) Urine Nitrite (Negative) Ur Leukocyte Esterase (Negative) Urine RBC (0-2) /HPF Urine WBC (0-5) /HPF Ur Squamous Epith Cells (0-2) /HPF Urine Bacteria (None Seen) Hyaline Casts (0-2) /LPF Urine Opiates Screen (Not Detect) Ur Buprenorphine Scrn (Not Detect) ng/mL Ur Oxycodone Screen (Not Detect) ng/mL Urine Methadone Screen (Not Detect) ng/mL Urine Fentanyl Screen (Not Detect) Ur Barbiturates Screen (Not Detect) Ur Phencyclidine Scrn (Not Detect) Ur Amphetamines Screen (Not Detect) U Benzodiazepines Scrn (Not Detect) Urine Cocaine Screen (Not Detect) U Marijuana (THC) Screen (Not Detect) A.phagocytophil DNA PCR NOT DETECTED (NOT DETECTED) Babesia microti DNA PCR NOT DETECTED (NOT DETECTED) Borrelia sp DNA (PCR) NOT DETECTED (NOT DETECTED) Lyme Screen IgG & IgM <0.90 index Lyme Progressive Test TNP Borrelia miyamotoi (PCR) NOT DETECTED (NOT DETECTED) E.chaffeensis DNA (PCR) NOT DETECTED (NOT DETECTED) Influenza Type A (PCR) (Negative) Influenza Type B (PCR) (Negative) RSV RNA Qual (PCR) (Negative) SARS-CoV-2 RNA (RT-PCR) (Negative) Tick-borne Disease PCR SEE NOTE Independent Interpretation I performed an independent interpretation of an: EKG and Plain X-Ray Interpretation: EKG showing normal sinus rhythm, rate 75, no acute ischemic changes or ST elevations Chest x-ray without infiltrate or consolidation Radiology Impression Discussion of test interpretation with radiology: I have reviewed the radiologist's reading. Radiologist Impression: Date of Service: 02/17/25 Procedure(s): XR chest 2V Accession Number(s): [id number] cc: Mena Worthy; Danni Walls~ Reason for Exam: upper respiratory sx EXAMINATION: XR CHEST 2 VIEWS HISTORY: upper respiratory sx COMPARISON: Comparison is made with the prior examination dated 12/15/2017. FINDINGS: PA and lateral views of the chest are submitted. The lungs are expanded and clear. There is no pleural effusion, pneumothorax, or pulmonary vascular congestion. The heart is normal in size. The bones are intact. XR/XR chest 2V IMPRESSION: No acute cardiopulmonary abnormality. Electronically signed by: Eric Luna MD 02/17/2025 10:30 AM [facility] [place] External Record Review External record reviewed: Inpatient record Prescription Management I considered prescription management with: Pain Medication Social Determinants Patient?s care significantly limited by Social Determinants of Health including: Other Social Determinant of Health Critical Care Time Critical Care Time Critical Care Time: No Discharge Plan Discharge Clinical Impression: Myalgia Patient Disposition: Home, Self-Care Instructions: Musculoskeletal Pain (ED) Additional Instructions: You were evaluated in the ED today for various symptoms. Your work up today is quite reassuring. Your cardiac enzyme is normal x3. You EKG and chest xray are both reassuring. You tested negative for covid, flu, rsv. Your urine does not demonstrate infection. As discussed, your TB tests from the walk in clinic are still pending. There are no results available as of now. The walk in should be contacting you with any positive results however I advise you to contact them if you do not hear from them in a few days. Additionally, we have sent your blood work to the lab today to check for tick bourne/ lyme disease. These results are still pending and you will be contacted by [facility] with any positive results requiring treatment at that time. In the meantime, you may take motrin/tylenol at home as needed. Follow up with your PCP. If you do not have one, I have provided you with a referral. Call them to [facility], they will not call you. Return with any new/worsening symptoms. In the case of an emergency call 911. Prescriptions: No Action prednisone 20 mg tablet 60 mg PO DAILY 5 Days Qty: 15 0RF famotidine [Pepcid] 20 mg tablet 20 mg PO DAILY PRN (Reason: abdominal discomfort) Qty: 30 0RF diclofenac sodium [Voltaren Arthritis Pain] 1 % gel 2 g topical QID Qty: 100 0RF Rx Instructions: apply to single elbow, wrist or hand; for hand includes palm/fingers/back of hand gabapentin 100 mg capsule 100 mg PO BID 10 Days Qty: 20 0RF Referrals: Mena Worthy FNP [Primary Care Provider, Family Practice] Interventions: ED Discharge Assessment Last Done: 02/17/25 14:25 Discharge Date/Time: 02/17/25 14:28 Print Language: Botswanan
[2025-02-17 12:33] VITALS: BP 89/56; PULSE 73; RESP 17; TEMP 37; O2SAT 97
[2025-02-17 13:07] VITALS: BP 102/66; RESP 15
[2025-02-17 14:25] VITALS: BP 100/71; PULSE 84; RESP 16; TEMP 37.2; O2SAT 98
[2025-02-18 06:54] LABS: Lyme Abs Screen <0.90 index
[2025-02-18 22:13] LABS: A. Phagocytphilium DNA,RT-PCR NOT DETECTED (NOT DETECTED); Babesia Microti DNA, RT-PCR NOT DETECTED (NOT DETECTED); Borrelia Miyamotoi,DNA RT-PCR NOT DETECTED (NOT DETECTED); E.Chaffeensis DNA RT-PCR NOT DETECTED (NOT DETECTED); Lyme(Borrelia ssp)DNA RT-PCR NOT DETECTED (NOT DETECTED)
== END 2025-02-17 14:28 | disposition home or self-care (01) ==
PROVIDERS: Physician Assistant Medical; Emergency Provider Emergency Medicine; PCP Registered Nurse
DX: M79.10 Myalgia, unspecified site (principal); R07.9 Chest pain, unspecified; R51.9 Headache, unspecified; R50.9 Fever, unspecified; R19.7 Diarrhea, unspecified; R10.9 Unspecified abdominal pain; Z03.818 Encounter for observation for suspected exposure to other biological agents ruled out
CPT/HCPCS: 36415; 71046; 80053; 80307; 81001; 82550; 84484; 85025; 86617; 86618; 87468; 87469; 87478; 87484; 87637; 87798; 93005; 96372; 99284; 99285; J1885

== ENCOUNTER → 2025-02-17 08:48 | Outpatient (BNV) | payer MEDICAID, SELFPAY | PROVIDERS: Emergency Provider Emergency Medicine; PCP Registered Nurse; Visit Provider Internal Medicine | DX: R07.9 Chest pain, unspecified (principal) | CPT/HCPCS: 93010 ==

== ENCOUNTER → 2025-02-17 09:43 | Outpatient (BNV) | payer MEDICAID, SELFPAY | PROVIDERS: Emergency Provider Emergency Medicine; PCP Registered Nurse; Visit Provider Radiology Diagnostic Radiology | DX: J39.9 Disease of upper respiratory tract, unspecified (principal) | CPT/HCPCS: 71046 ==